=== PATIENT | male | born 1965 | race Caucasian/White ===

== ENCOUNTER 2017-05-21 23:31 | Inpatient (IN) | payer OTHER ==
[2017-05-21] MEDS ORDERED: Magnesium 2 GM/NS 0.9% 50 ML 2 GM in Premix Bag 1 BAG IVPB SCH (23:45)
[2017-05-21] MEDS ORDERED: Lorazepam 2 MG/ML VIAL ONE (23:52)
[2017-05-22 00:13] LABS: #Basophils 0.1 thou/uL (0.0-0.2); #Eosinphils 0.9 thou/uL (0.0-0.7); #Lymphocytes 1.4 thou/uL (1.20-3.40); #Monocytes 1.1 thou/uL (0.11-0.59); #Neutrophils 9.6 thou/uL (1.40-6.50); %Basophils 0.6 % (0.0-1.0); %Eosinophils 7.1 % (0.0-10.0); %Lymphocytes 10.5 % (21.0-51.0); %Monocytes 8.7 % (0.0-10.0); Hematocrit 43.5 % (42.0-52.0); Mean Platelet Volume 6.4 fL (7.4-10.4); Red Blood Cell (RBC) Count 4.58 mill/uL (4.70-6.10); White Blood Cell (WBC) Count 13.1 thou/uL (4.8-10.8)
[2017-05-22 00:33] LABS: ALT (SGPT) 13 U/L (8-55); AST (SGOT) 16 U/L (5-34); Alkaline Phosphatase 91 U/L (40-150); Anion Gap 13 mmol/L (10-20); BUN (Urea Nitrogen) 12 mg/dL (8.4-25.7); Bilirubin, Total 0.3 mg/dL (0.2-1.2); Calc. Creatinine Clearance 0 mL/min (70-130); Calcium 11.5 mg/dL (7.8-10.44); Carbon Dioxide 25 mmol/L (22-29); Chloride 101 mmol/L (98-107); Estimated GFR-MDRD Greater than 90; Globulin 3.7 g/dL (2.4-3.5); Protein, Total 7.8 g/dL (6.0-8.3)
[2017-05-22] MEDS ORDERED: Sodium Chloride 0.9% 1,000 ML IV SCH (02:10)
[2017-05-22] MEDS ORDERED: Ondansetron HCl/PF 4 MG/2 ML Vial IVP PRN ×2 (02:10→02:35)
[2017-05-22] MEDS ORDERED: Ondansetron ODT 4 MG TAB SL PRN (02:10)
[2017-05-22 02:25] VITALS: BMI 21.4
[2017-05-22] MEDS ORDERED: Acetaminophen 325 MG TAB PO PRN (02:35)
[2017-05-22] MEDS ORDERED: Ondansetron ODT 4 MG TAB PO PRN (02:35)
[2017-05-22] MEDS ORDERED: Bisacodyl 5 MG TAB PO PRN (02:35)
[2017-05-22] MEDS ORDERED: Albuterol Sulfate 2.5 mg/3 ml Neb NEB PRN (02:35)
[2017-05-22] MEDS ORDERED: Acetaminophen 650 MG Suppository PR PRN (02:35)
[2017-05-22] MEDS ORDERED: Bisacodyl 10 MG SUPP PR PRN (02:35)
[2017-05-22] MEDS ORDERED: Enoxaparin Sodium 40 MG/0.4 ML SYRINGE SC SCH (02:45)
[2017-05-22 05:16] LABS: Anion Gap 12 mmol/L (10-20); BUN (Urea Nitrogen) 11 mg/dL (8.4-25.7); Calc. Creatinine Clearance 93 mL/min (70-130); Calcium 11.5 mg/dL (7.8-10.44); Carbon Dioxide 24 mmol/L (22-29); Chloride 104 mmol/L (98-107); Estimated GFR-MDRD Greater than 90
[2017-05-22 05:23] LABS: Phosphorus 1.7 mg/dL (2.3-4.7)
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
--- NOTE | 2017-05-22 06:47 | RAD ---
AP VIEW OF CHEST: Date: 05/21/17 HISTORY: Shortness of breath. FINDINGS: The lungs are well aerated. No evidence of active intrathoracic disease seen. No evidence of effusio ns, pneumonia, or pneumothorax seen. IMPRESSION: Unremarkable AP view chest. POS: [facility]
--- NOTE | 2017-05-22 06:55 | HP ---
DATE OF ADMISSION: 05/22/2017 ATTENDING: Dr. Roseline Benavides. RESIDENT: Dr. Kal Mckeon. Dr. Kal Mckeon's history and physical have been reviewed and case discussed. Pertinent portions of the history and physical repeated by myself. I agree with the assessment and plan with the [facility] addendum. Mr. Amos is a 52-year-old male with past medical history of COPD, hypertension, and cur rent incarceration, who presents with a several day history of worsening shortness of breath. In e ER, he was diagnosed with COPD exacerbation and started on BiPAP for respiratory distress. He arr ived to the intermediate care unit at approximately 40 minutes ago and since then he has been weaned off of BiPAP and is now resting comfortably. His O2 saturations are now 98% on 2 liters nasal jamaal hilda. He does not appear to be in respiratory distress, but remains mildly tachypneic. We will cont inue steroids, DuoNeb as needed and monitor in the IMCU for some time this morning. If he continues to do well and improved, may consider transferring out of the IMCU later today. We will continue h is home medications with the addition of steroids and Levaquin for COPD exacerbation. Chest x-ray s hows not really concerning for pneumonia at this time. We were awaiting on the official overread fo r that. In addition to that his calcium is 11.5, he has a history of hyperparathyroidism for which he had thyroid surgery and removal, not currently having any symptoms of hypercalcemia. We will giv e him some IV fluids and Lasix to decrease this and work this up.
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
[2017-05-22] MEDS: Bupropion 150 MG XL TAB PO SCH ×2 (08:48→20:20)
[2017-05-22] MEDS: Famotidine 20 MG TAB PO SCH ×2 (08:48→20:20)
[2017-05-22] MEDS: predniSONE 20 MG TAB PO SCH (08:49)
[2017-05-22] MEDS: FLUoxetine HCl 20 MG CAP PO SCH (08:49)
[2017-05-22] MEDS: Diazepam 5 MG TAB PO PRN ×2 (08:53→16:59)
[2017-05-22] MEDS: HYDROcodone/Acetaminophen 10/325 mg Tablet PO PRN ×3 (08:53→22:21)
[2017-05-22 11:01] LABS: #Basophils 0.1 thou/uL (0.0-0.2); #Lymphocytes 1.4 thou/uL (1.20-3.40); #Monocytes 1.1 thou/uL (0.11-0.59); #Neutrophils 9.6 thou/uL (1.40-6.50); %Basophils 0.5 % (0.0-1.0); %Eosinophils 7.3 % (0.0-10.0); %Lymphocytes 10.5 % (21.0-51.0); %Monocytes 8.7 % (0.0-10.0); Hematocrit 44.5 % (42.0-52.0); Mean Platelet Volume 6.9 fL (7.4-10.4); Red Blood Cell (RBC) Count 4.58 mill/uL (4.70-6.10); White Blood Cell (WBC) Count 13.2 thou/uL (4.8-10.8)
[2017-05-22 12:10] LABS: Base Excess -1.3 mEq/L (0 (+/- 2.5)); O2 Content (venous) 17.2 VOL% (12.5-17.5); pH (venous) 7.413 (7.35-7.45)
--- NOTE | 2017-05-22 12:31 | PDOC.EVN ---
Event Note - Event Note Event Note: Attending Note I personally evaluated the patient and discussed the management with Dr. Carlin His Asthma or COPD is significantly better since admission. Off Bipap. PFTs pedning. Hypercalcemia noted. Etiology workup underway.
[2017-05-22 15:48] LABS: Free T3 2.26 pg/mL (1.71-3.71)
[2017-05-22] MEDS ORDERED: Mometasone/Formoterol 120 PUFF INHALER INH SCH (18:30)
[2017-05-22] MEDS: Atenolol 50 MG TAB PO SCH (20:20)
[2017-05-22] MEDS ORDERED: Benzonatate 100 MG CAP PO PRN (21:52)
[2017-05-23] MEDS: Diazepam 5 MG TAB PO PRN ×3 (01:21→20:09)
--- NOTE | 2017-05-23 07:00 | PDOC.FM ---
- Subjective Subjective: Pt is doing well this morning with no complaints. No adverse events overnight. - Objective MAR Reviewed: Yes Vital Signs & Weight: Vital Signs (12 hours) Temp Pulse Resp BP Pulse Ox 05/23/17 06:40 82 20 94 L 05/23/17 04:39 98 F 69 18 159/86 H 95 05/22/17 21:48 71 22 H 92 L 05/22/17 20:20 89 05/22/17 20:00 98 F 89 18 93 L 05/22/17 19:33 98.1 F 89 18 158/83 H 93 L Weight Weight 64.002 kg I&O: 05/21/17 05/22/17 05/23/17 06:59 06:59 06:59 Intake Total 1950 950 Output Total 720 250 Balance 1230 700 Result Diagrams: 05/22/17 04:40 05/23/17 03:57 <Ruba Carlin - Last Filed: 05/23/17 09:01> - Objective Vital Signs & Weight: Vital Signs (12 hours) Temp Pulse Resp BP BP Pulse Ox 05/23/17 14:34 80 20 94 L 05/23/17 10:46 87 20 95 05/23/17 10:11 167/85 H 05/23/17 08:00 97.8 F 87 20 05/23/17 07:58 65 167/85 H 05/23/17 07:50 97.8 F 77 16 155/88 H 97 05/23/17 06:40 82 20 94 L 05/23/17 04:39 98 F 69 18 159/86 H 95 Weight Weight 64.002 kg I&O: 05/22/17 05/23/17 05/24/17 06:59 06:59 06:59 Intake Total 1950 950 480 Output Total 720 250 Balance 1230 700 480 Result Diagrams: 05/22/17 04:40 05/23/17 03:57 <Malvin Zambrano - Last Filed: 05/23/17 15:19> Phys Exam - Physical Examination Constitutional: NAD no thyromegaly; no mass on neck exam. Respiratory: clear to auscultation bilateral Cardiovascular: RRR Gastrointestinal: soft, non-tender Musculoskeletal: no edema <Ruba Carlin - Last Filed: 05/23/17 09:01> Dx/Plan (1) Acute exacerbation of chronic obstructive pulmonary disease (COPD) Code(s): J44.1 - CHRONIC OBSTRUCTIVE PULMONARY DISEASE W (ACUTE) EXACERBATION Status: Acute Plan: Improving. Continue antibiotic, bronchodilator and steroid therapy. (2) Hypercalcemia Code(s): E83.52 - HYPERCALCEMIA Status: Acute Plan: Ca: 12.2 today. Pt is asymptomatic with moderately elevated calcium. will start hydration with IV fluids and encourage po hydration as well. Emergent treatment not warranted at this time. (3) Primary hyperparathyroidism Code(s): E21.0 - PRIMARY HYPERPARATHYROIDISM Status: Chronic Plan: Pt has hypercalcemia and hypophosphatemia. outpatient surgical managment vs. medical surveilance. (4) Hypophosphatemia Code(s): E83.39 - OTHER DISORDERS OF PHOSPHORUS METABOLISM Status: Resolved Plan: Resolved after oral replacement. (5) Subclinical hyperthyroidism Code(s): E05.90 - THYROTOXICOSIS, UNSP WITHOUT THYROTOXIC CRISIS OR STORM Status: Chronic Plan: decreased TSH and normal free T3/T4 Pt is asymptomatic. No treatment needed at this time. (6) Hypertension Code(s): I10 - ESSENTIAL (PRIMARY) HYPERTENSION Status: Chronic Plan: Atenolol restarted. (7) Bipolar disorder Code(s): F31.9 - BIPOLAR DISORDER, UNSPECIFIED Status: Acute Plan: Continue medical management. (8) Acute respiratory failure with hypoxia Code(s): J96.01 - ACUTE RESPIRATORY FAILURE WITH HYPOXIA Status: Resolved Plan: Resolved. - Plan Plan: Likely D/C today. <Ruba Carlin - Last Filed: 05/23/17 09:01> Attending Addendum - Attending Addendum I personally evaluated the patient and discussed the management with Dr. Carlin. I agree with the History, Examination, Assessment and Plan documented above with any addition or exceptions noted below. Stable. Discharge when cleared by Pulmonology. <Malvin Zambrano - Last Filed: 05/23/17 15:19>
[2017-05-23 07:41] LABS: ALT (SGPT) 12 U/L (8-55); AST (SGOT) 15 U/L (5-34); Alkaline Phosphatase 76 U/L (40-150); Anion Gap 12 mmol/L (10-20); BUN (Urea Nitrogen) 16 mg/dL (8.4-25.7); Bilirubin, Total 0.2 mg/dL (0.2-1.2); Calc. Creatinine Clearance 77 mL/min (70-130); Carbon Dioxide 23 mmol/L (22-29); Chloride 103 mmol/L (98-107); Estimated GFR-MDRD 77; Globulin 3.5 g/dL (2.4-3.5); Protein, Total 7.3 g/dL (6.0-8.3)
[2017-05-23 07:47] LABS: Calcium 12.2 mg/dL (7.8-10.44)
[2017-05-23] MEDS: predniSONE 20 MG TAB PO SCH ×3 (07:57→21:34)
[2017-05-23] MEDS: FLUoxetine HCl 20 MG CAP PO SCH (07:57)
[2017-05-23] MEDS: Bupropion 150 MG XL TAB PO SCH ×2 (07:57→21:35)
[2017-05-23] MEDS: Famotidine 20 MG TAB PO SCH ×2 (07:57→21:35)
[2017-05-23] MEDS: Aspirin 81 mg Enteric Coated Tablet PO SCH (07:57)
[2017-05-23] MEDS: HYDROcodone/Acetaminophen 10/325 mg Tablet PO PRN ×3 (07:58→22:57)
[2017-05-23] MEDS: Atenolol 50 MG TAB PO SCH (07:58)
[2017-05-23] MEDS ORDERED: FLU VACC QS2017-18 36 mo. & older 0.5 ML SYRINGE IM ONE (09:00)
[2017-05-23] MEDS: Sodium Chloride 0.9% 1,000 ML IV SCH ×2 (10:10→16:46)
[2017-05-23] MEDS: cloNIDine 0.2 MG TAB PO SCH ×2 (10:11→21:35)
--- NOTE | 2017-05-23 10:42 | PRG ---
DATE OF SERVICE: 05/23/2017 This morning he is still coughing, still wheezing, still short of breath. He said he is denying any tobacco use. PHYSICAL EXAMINATION: VITAL SIGNS: Blood pressure 167/87, pulse 67, temperature is 98. CHEST: Chest reveals diffuse wheezing. CARDIAC: Normal S1, S2. ABDOMEN: Soft, no masses. LABORATORY DATA: White count 13,000, H\T\H 14 and 43, platelet count was normal. Electrolytes are normal. Calcium was 12.2. Etiology unclear. Thyroid function normal. IMPRESSION: 1. Chronic obstructive pulmonary disease. 2. Asthma. 3. Elevated calcium from his previous parathyroid hormone excess. PLAN: Avoid beta blockers, continue steroids. Continue nebulizer treatments. Empiric antibiotics. I will follow.
[2017-05-23] MEDS ORDERED: diphenhydrAMINE 25 MG CAP PO PRN (17:41)
[2017-05-23] MEDS: Mometasone/Formoterol 120 PUFF INHALER INH SCH (18:50)
[2017-05-23] MEDS ORDERED: Montelukast Sodium 10 mg Tablet PO SCH (21:00)
[2017-05-24] MEDS: Sodium Chloride 0.9% 1,000 ML IV SCH ×2 (02:04→09:04)
[2017-05-24] MEDS: Diazepam 5 MG TAB PO PRN (03:54)
[2017-05-24 04:53] LABS: ALT (SGPT) 12 U/L (8-55); AST (SGOT) 11 U/L (5-34); Alkaline Phosphatase 68 U/L (40-150); Anion Gap 9 mmol/L (10-20); BUN (Urea Nitrogen) 20 mg/dL (8.4-25.7); Bilirubin, Total 0.2 mg/dL (0.2-1.2); Calc. Creatinine Clearance 74 mL/min (70-130); Calcium 11.6 mg/dL (7.8-10.44); Carbon Dioxide 27 mmol/L (22-29); Chloride 102 mmol/L (98-107); Estimated GFR-MDRD 74; Globulin 3.2 g/dL (2.4-3.5); Protein, Total 6.7 g/dL (6.0-8.3)
--- NOTE | 2017-05-24 06:40 | PDOC.FM ---
- Subjective Subjective: Patient is doing well this morning with no complaints. No adverse events overnight. - Objective MAR Reviewed: Yes Vital Signs & Weight: Vital Signs (12 hours) Temp Pulse Resp BP BP Pulse Ox 05/24/17 03:38 97.4 F L 66 16 126/75 97 05/23/17 23:33 97.6 F 65 16 135/74 95 05/23/17 21:35 167/85 H 05/23/17 20:00 97.6 F 65 16 98 05/23/17 19:51 97.6 F 69 16 136/73 98 05/23/17 18:51 78 18 93 L Weight Weight 64.002 kg I&O: 05/22/17 05/23/17 05/24/17 06:59 06:59 06:59 Intake Total 0926 373 4439 Output Total 924 621 5913 Balance 0929 405 9284 Result Diagrams: 05/22/17 04:40 05/24/17 03:54 <Ruba Carlin - Last Filed: 05/24/17 10:15> - Objective Vital Signs & Weight: Vital Signs (12 hours) Temp Pulse Resp BP BP Pulse Ox 05/24/17 08:33 133/77 05/24/17 08:00 97.8 F 67 16 05/24/17 07:58 97.8 F 67 16 133/77 97 05/24/17 07:49 95 05/24/17 07:48 67 20 95 05/24/17 07:42 67 20 95 05/24/17 03:38 97.4 F L 66 16 126/75 97 Weight Weight 64.002 kg I&O: 05/23/17 05/24/17 05/25/17 06:59 06:59 06:59 Intake Total 950 6545 Output Total 250 1800 Balance 700 4745 Result Diagrams: 05/22/17 04:40 05/24/17 03:54 <Malvin Zambrano - Last Filed: 05/24/17 13:04> Phys Exam - Physical Examination Constitutional: NAD Respiratory: wheezing present (diffuse) Cardiovascular: RRR Gastrointestinal: soft, non-tender, no distention Musculoskeletal: no edema Neurological: non-focal Psychiatric: normal affect, A&O x 3 <Ruba Carlin - Last Filed: 05/24/17 10:15> Dx/Plan (1) Acute exacerbation of chronic obstructive pulmonary disease (COPD) Code(s): J44.1 - CHRONIC OBSTRUCTIVE PULMONARY DISEASE W (ACUTE) EXACERBATION Status: Acute Plan: Improving. Continue antibiotic, bronchodilator and steroid therapy. Likely discharge today with short steroid taper and antibiotics. (2) Hypercalcemia Code(s): E83.52 - HYPERCALCEMIA Status: Acute Plan: Ca: 11.6 today Pt is asymptomatic with mildly elevated calcium. Pt will need further outpatient evaluation/treatment for primary hyperparathyroidism. (3) Primary hyperparathyroidism Code(s): E21.0 - PRIMARY HYPERPARATHYROIDISM Status: Chronic Plan: Pt has hypercalcemia and hypophosphatemia. Asymptomatic. No renal failure, bone pain, nephrolithiasis, abdominal pain, or psychiatric problems. outpatient surgical managment vs. medical surveilance. (4) Hypophosphatemia Code(s): E83.39 - OTHER DISORDERS OF PHOSPHORUS METABOLISM Status: Resolved Plan: secondary to primary hyperparathyroidism. Will recheck this am prior to discharge. (5) Subclinical hyperthyroidism Code(s): E05.90 - THYROTOXICOSIS, UNSP WITHOUT THYROTOXIC CRISIS OR STORM Status: Chronic Plan: decreased TSH and normal free T3/T4 Pt is asymptomatic. No treatment needed at this time. (6) Hypertension Code(s): I10 - ESSENTIAL (PRIMARY) HYPERTENSION Status: Chronic Plan: Stable. Continue home regimen. (7) Bipolar disorder Code(s): F31.9 - BIPOLAR DISORDER, UNSPECIFIED Status: Acute Plan: Continue medical management. (8) Acute respiratory failure with hypoxia Code(s): J96.01 - ACUTE RESPIRATORY FAILURE WITH HYPOXIA Status: Resolved Plan: Resolved. <Ruba Carlin - Last Filed: 05/24/17 10:15> Attending Addendum - Attending Addendum I personally evaluated the patient and discussed the management with Dr. Carlin. I agree with the History, Examination, Assessment and Plan documented above with any addition or exceptions noted below. Mr Amos is stable for discharge. Recommend Endocrinology referral outpatient. <Malvin Zambrano - Last Filed: 05/24/17 13:04>
[2017-05-24] MEDS: Mometasone/Formoterol 120 PUFF INHALER INH SCH (07:42)
[2017-05-24 07:59] VITALS: BP 133/77; TEMP 97.8
[2017-05-24] MEDS: FLUoxetine HCl 20 MG CAP PO SCH (08:31)
[2017-05-24] MEDS: predniSONE 20 MG TAB PO SCH (08:32)
[2017-05-24] MEDS: Aspirin 81 mg Enteric Coated Tablet PO SCH (08:32)
[2017-05-24] MEDS: Famotidine 20 MG TAB PO SCH (08:32)
[2017-05-24] MEDS: cloNIDine 0.2 MG TAB PO SCH (08:33)
[2017-05-24] MEDS: Bupropion 150 MG XL TAB PO SCH (08:33)
--- NOTE | 2017-05-24 09:06 | PRG ---
DATE OF SERVICE: 05/24/2017 The patient is better this morning, less shortness of breath, coughing, wheezing. PHYSICAL EXAMINATION: VITAL SIGNS: Sats 97%, 16, blood pressure 130/73. CHEST: Chest revealed decreased breath sounds. There is no wheezing. CARDIAC: Normal S1, S2. ABDOMEN: Soft, no masses. LABORATORY: Sodium 156, calcium 9.6. IMPRESSION: 1. Elevated calcium secondary to PTH. 2. Hypertension, improved. 3. Asthma. 4. Bronchitis. 5. Chronic obstructive pulmonary disease, improved. PLAN: Avoid beta blockers, continue present blood pressure medication. Follow with primary care ph ysician. Taper steroids over the course of 10 days. Continue Dulera, neb treatments, supportive care.
--- NOTE | 2017-05-24 14:14 | DIS-2 ---
DATE OF ADMISSION: 05/22/2017 DATE OF DISCHARGE: 05/24/2017 ADMITTING ATTENDING: Dr. Roseline Benavides DISCHARGE ATTENDING: Malvin Zambrano M.D. CONSULTS: Eduardo Bright M.D. PROCEDURES: None. PRIMARY DIAGNOSES: 1. Acute hypoxic respiratory failure, resolved. 2. Acute chronic obstructive pulmonary disease exacerbation. 3. Mild to moderate hypercalcemia. 4. Hypophosphatemia. SECONDARY DIAGNOSES: 1. Primary hyperparathyroidism. 2. Hypertension. 3. Bipolar disorder. 4. Subclinical hyperthyroidism. DISCHARGE MEDICATIONS: 1. Levofloxacin 750 mg p.o. daily, dispense 4 tablets. 2. Prednisone 60 mg p.o. daily, dispense 4 tablets. 3. Symbicort 160/4.5 mg 1 puff inhalation b.i.d. 4. Wellbutrin-XL 150 mg p.o. b.i.d. 5. Verapamil 240 mg p.o. b.i.d. 6. Fluoxetine 60 mg p.o. daily. 7. Valium 5 mg p.o. q.8h. p.r.n. 8. [place] 10/325 one tab p.o. q.6 hours. DISCONTINUED MEDICATIONS: Atenolol 50 mg p.o. b.i.d. HISTORY OF PRESENT ILLNESS AND HOSPITAL COURSE: The patient is a 52-year-old male who pre sented with a chief complaint of dyspnea that has been ongoing for 1 week and acutely worsened over the day prior to admission. The patient has a questionable past history of obstructive lung disease , either related to chronic obstructive pulmonary disease versus asthma. He presented to the emerge ncy department and was hypoxic and required BiPAP. The patient was quickly transitioned off of BiPA P for several hours after admission to the IM. He was then transferred to the floor for further c are and treatment for moderate COPD exacerbation was initiated including antibiotics, steroids and b ronchodilator treatment and the patient's symptoms resolved and he was stable prior to discharge. Regarding his history of hypercalcemia, the patient's initial calcium on admission was 11.5. The ruslan law did have a past history of parathyroid adenoma removal about 9 years ago and concern was raise d for possible recurrence or parathyroid hyperplasia. Parathyroid level was obtained and was elevat ed which points to a diagnosis of primary hyperparathyroidism. The patient remained asymptomatic in that he did not have any renal failure or nephrolithiasis, abdominal pain, acute psychosis, etc., r elated to his hypercalcemia and for that reason emergent treatment was not deemed necessary. His ca lcium did rise to a level of 12.2 in the moderate range and since the patient was deemed asymptomati c no emergent treatment was deemed necessary. Maintenance fluids were started. The patient will ne ed further outpatient evaluation, possibly including imaging and eventually surgery versus medical s urveillance based on patient preferences. Regarding the patient's hypophosphatemia, phosphorus on admission was 1.7 and responded to oral repl acement. This was also related to the patient's hyperparathyroidism. Regarding the patient's chronic medical problems, all home medications were restarted. Of note, the patient states that for the several weeks prior to admission his Symbicort had not been refilled at the halfway and this was the likely impetus for his exacerbations. It will be most important for pily abdul to be able to have access to all of his medications in order to prevent future exacerbations. DISPOSITION: Stable. DISCHARGE INSTRUCTIONS: 1. Location: [facility]. 2. Diet: Regular. 3. Activity: Ad jerzy. 4. Followup: The patient may follow up with his primary provider in 3 days.
== END 2017-05-24 11:01 | DRG 190 ==
LOC: ERS 23:31 → EEVIPCON 23:31 → IMCU/EMU 05-22 01:00 → ONC 05-22 12:40
PROVIDERS: ADMIT Family Medicine; ATTEND Family Medicine
PROC: 5A09357 Assistance with Respiratory Ventilation, Less than 24 Consecutive Hours, Continuous Positive Airway Pressure (ICD-10-PCS; principal; 2017-05-21)
DX: J44.1 Chronic obstructive pulmonary disease with (acute) exacerbation (principal); J96.01 Acute respiratory failure with hypoxia; E21.0 Primary hyperparathyroidism; E83.39 Other disorders of phosphorus metabolism; I10 Essential (primary) hypertension; F31.9 Bipolar disorder, unspecified; Z23 Encounter for immunization; Z87.891 Personal history of nicotine dependence; M54.9 Dorsalgia, unspecified; G89.29 Other chronic pain; E05.90 Thyrotoxicosis, unspecified without thyrotoxic crisis or storm
CPT/HCPCS: 36415; 71010; 80048; 80053; 82306; 82570; 82805; 83970; 84100; 84105; 84439; 84443; 84481; 85025; 90471; 90682; 90732; 93005; 94060; 94640; 94660; 94727; 96365; 96375; A4216; G0008; G0009; J2060; J3475; J7506; J7620; Q2036

== ENCOUNTER 2018-01-09 11:38 | Emergency (ER) | payer OTHER ==
[2018-01-09] MEDS ORDERED: Lisinopril 10 MG TAB ONE ×2 (12:03→12:12)
[2018-01-09] MEDS ORDERED: cloNIDine 0.1 MG TAB ONE (12:03)
[2018-01-09] MEDS ORDERED: Atenolol 50 MG TAB PO SCH (12:30)
[2018-01-09 12:39] LABS: #Basophils 0.1 thou/uL (0.0-0.2); #Eosinphils 0.7 thou/uL (0.0-0.7); #Lymphocytes 2.4 thou/uL (1.20-3.40); #Monocytes 0.9 thou/uL (0.11-0.59); #Neutrophils 5.7 thou/uL (1.40-6.50); %Lymphocytes 24.3 % (21.0-51.0); %Monocytes 9.5 % (0.0-10.0); %Neutrophils 58.2 % (42.0-75.0); Hemoglobin 15.4 g/dL (14.0-18.0); Mean Corpuscular HGB CONC 33.2 g/dL (32.0-36.0); Mean Corpuscular Hemoglobin 31.1 pg (27.0-31.0); Mean Corpuscular Volume 93.7 fl (80.0-94.0); Mean Platelet Volume 6.2 fL (7.4-10.4); Platelet Count 352 thou/uL (130-400); RBC Distribution Width 16.1 % (11.5-14.5); Red Blood Cell (RBC) Count 4.94 mill/uL (4.70-6.10); White Blood Cell (WBC) Count 9.9 thou/uL (4.8-10.8)
[2018-01-09 13:03] LABS: Anion Gap 13 mmol/L (10-20); BUN (Urea Nitrogen) 16 mg/dL (8.4-25.7); Calc. Creatinine Clearance 0 mL/min (70-130); Calcium 11.5 mg/dL (7.8-10.44); Carbon Dioxide 24 mmol/L (22-29); Chloride 102 mmol/L (98-107); Estimated GFR-MDRD 71; Glucose 87 mg/dL (70-105); Potassium 4.6 mmol/L (3.5-5.1); Sodium 134 mmol/L (136-145)
--- NOTE | 2018-01-09 13:06 | RAD ---
PORTABLE CHEST: HISTORY: Cough. COMPARISON: 05/21/17 exam. FINDINGS: Heart size and mediastinum are within normal limits. The lungs appear clear of any infiltrative proc ess. No significant bony findings. IMPRESSION: No active intrathoracic disease. POS: [facility]
== END 2018-01-09 14:37 | disposition home or self-care (01) ==
LOC: ERS 11:38
DX: J44.1 Chronic obstructive pulmonary disease with (acute) exacerbation (principal); I16.0 Hypertensive urgency; G89.29 Other chronic pain; F41.9 Anxiety disorder, unspecified; F32.9 Major depressive disorder, single episode, unspecified; Z87.891 Personal history of nicotine dependence; Z79.899 Other long term (current) drug therapy
CPT/HCPCS: 36415; 71045; 80048; 85025; 94640; J7620

== ENCOUNTER 2018-07-16 18:52 | Observation (INO) | payer OTHER ==
[2018-07-16] MEDS ORDERED: Aspirin 325 MG TAB ONE (19:04)
[2018-07-16] MEDS ORDERED: Nitroglycerin 0.4 MG TAB (25 Tab Bottle) ONE (19:04)
[2018-07-16] MEDS ORDERED: Ondansetron PF 4 MG/2 ML Vial ONE ×2 (19:12)
--- NOTE | 2018-07-16 19:22 | RAD ---
PORTABLE CHEST 07/16/18 PROVIDED CLINICAL HISTORY: Shortness of breath and chest pain. FINDINGS: Comparison 01/09/18. The cardiac and mediastinal silhouette are within normal limits for portable technique. No focal cons olidation, pleural fluid or pneumothorax apparent. IMPRESSION: No evidence for an acute cardiopulmonary process. POS: [facility]
[2018-07-16] MEDS ORDERED: Lorazepam 2 MG/ML VIAL ONE (19:23)
[2018-07-16 19:25] LABS: #Basophils 0.1 thou/uL (0.0-0.2); #Eosinphils 0.7 thou/uL (0.0-0.7); #Lymphocytes 1.9 thou/uL (1.20-3.40); #Monocytes 0.7 thou/uL (0.11-0.59); #Neutrophils 3.9 thou/uL (1.40-6.50); %Basophils 1.3 % (0.0-1.0); %Eosinophils 9.4 % (0.0-10.0); %Lymphocytes 26.1 % (21.0-51.0); %Monocytes 9.7 % (0.0-10.0); %Neutrophils 53.5 % (42.0-75.0); Hemoglobin 13.7 g/dL (14.0-18.0); Mean Corpuscular HGB CONC 33.3 g/dL (32.0-36.0); Mean Corpuscular Volume 96.2 fL (78.0-98.0); Mean Platelet Volume 7.3 fL (7.4-10.4); Platelet Count 267 thou/uL (130-400); Red Blood Cell (RBC) Count 4.28 mill/uL (4.70-6.10); White Blood Cell (WBC) Count 7.3 thou/uL (4.8-10.8)
[2018-07-16 19:52] LABS: ALT (SGPT) 17 U/L (8-55); AST (SGOT) 24 U/L (5-34); Albumin 4.1 g/dL (3.5-5.0); Alkaline Phosphatase 77 U/L (40-150); Anion Gap 8 mmol/L (10-20); Bilirubin, Total 0.3 mg/dL (0.2-1.2); Calc. Creatinine Clearance 0 mL/min (70-130); Carbon Dioxide 28 mmol/L (22-29); Chloride 100 mmol/L (98-107); Estimated GFR-MDRD 65; Globulin 3.2 g/dL (2.4-3.5); Glucose 104 mg/dL (70-105); Lipase 34 U/L (8-78); Protein, Total 7.3 g/dL (6.0-8.3); Sodium 132 mmol/L (136-145)
[2018-07-16 19:54] LABS: BUN (Urea Nitrogen) 29 mg/dL (8.4-25.7)
[2018-07-16 19:58] LABS: Calcium 13.4 mg/dL (7.8-10.44)
[2018-07-16 20:20] LABS: Bilirubin Negative (Negative); Blood, Urine Negative (Negative); Clarity CLOUDY (Clear); Glucose, Urine (Dipstick) Negative (Negative); Leukocyte Negative (Negative); Nitrite Negative (Negative); Protein, Urine (Dipstick) Negative (Neg-Trace); Specific Gravity, Urine 1.012 (1.002-1.036); Urobilinogen 0.2 mg/dL (0.2-1.0); pH, Urine 7.5 (5.0-9.0)
[2018-07-16] MEDS ORDERED: hydrALAZINE 20 MG/ML VIAL ONE ×2 (20:22→21:06)
[2018-07-16] MEDS ORDERED: Ketorolac Tromethamine 30 MG/ML VIAL ONE (20:22)
[2018-07-16] MEDS ORDERED: Acetaminophen 325 MG TAB PO PRN (22:47)
[2018-07-16] MEDS ORDERED: hydrALAZINE 20 MG/ML VIAL SLOW IVP PRN (22:52)
[2018-07-16] MEDS ORDERED: PROVENTIL INHALER 6.7 G (200 INHALATIONS) INH PRN (22:53)
[2018-07-16] MEDS ORDERED: Atenolol 25 MG TAB PO SCH (23:00)
[2018-07-16 23:50] LABS: Troponin I 0.026 ng/mL (< 0.028)
[2018-07-17] MEDS: Sodium Chloride 0.9% 1,000 ML IV SCH ×2 (01:33→09:05)
[2018-07-17 02:19] LABS: Troponin I 0.022 ng/mL (< 0.028)
[2018-07-17 03:45] VITALS: BMI 20.8
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
[2018-07-17 06:34] LABS: #Eosinphils 0.8 thou/uL (0.0-0.7); #Lymphocytes 1.2 thou/uL (1.20-3.40); #Monocytes 0.6 thou/uL (0.11-0.59); #Neutrophils 3.1 thou/uL (1.40-6.50); %Basophils 0.7 % (0.0-1.0); %Eosinophils 13.2 % (0.0-10.0); %Lymphocytes 21.4 % (21.0-51.0); %Monocytes 10.5 % (0.0-10.0); %Neutrophils 54.3 % (42.0-75.0); Hemoglobin 13.6 g/dL (14.0-18.0); Mean Corpuscular HGB CONC 32.9 g/dL (32.0-36.0); Mean Corpuscular Hemoglobin 32.2 pg (27.0-31.0); Mean Corpuscular Volume 97.9 fL (78.0-98.0); Mean Platelet Volume 7.3 fL (7.4-10.4); Platelet Count 244 thou/uL (130-400); RBC Distribution Width 13.2 % (11.5-14.5); Red Blood Cell (RBC) Count 4.21 mill/uL (4.70-6.10); White Blood Cell (WBC) Count 5.7 thou/uL (4.8-10.8)
[2018-07-17 06:48] LABS: Anion Gap 9 mmol/L (10-20); BUN (Urea Nitrogen) 22 mg/dL (8.4-25.7); Calc. Creatinine Clearance 66 mL/min (70-130); Carbon Dioxide 23 mmol/L (22-29); Chloride 105 mmol/L (98-107); Estimated GFR-MDRD 67; Glucose 103 mg/dL (70-105); Potassium 4.6 mmol/L (3.5-5.1); Sodium 132 mmol/L (136-145)
[2018-07-17 06:51] LABS: Calcium 12.1 mg/dL (7.8-10.44)
[2018-07-17] MEDS ORDERED: FLUoxetine HCl 20 MG CAP PO SCH (09:00)
[2018-07-17] MEDS: Hydrocortisone 1% Cream 30 GM TUBE TOP SCH ×2 (10:24→20:53)
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
--- NOTE | 2018-07-17 11:37 | PDOC.PN ---
- Subjective Encounter Start Date: 07/17/18 Encounter Start Time: 11:00 Subjective: Patient c/o shortness of breath, chest pain -: Reports "everything hurts" n/v, dysuria - Objective Resuscitation Status - Order Detail: 07/16/18 22:47 Resuscitation Status Routine Resuscitation Status: FULL: Full Resuscitation Discussed with: Patient Vital Signs & Weight: Vital Signs (12 hours) Temp Pulse Resp BP BP Pulse Ox 07/17/18 08:15 97.4 F L 71 18 164/97 H 164/97 H 96 07/17/18 04:00 98.5 F 112 H 20 150/87 H 94 L 07/17/18 03:31 81 18 07/17/18 01:41 98 07/17/18 00:00 112 H 162/79 H Weight Weight 62.142 kg I&O: 07/16/18 07/17/18 07/18/18 06:59 06:59 06:59 Intake Total 1350 Output Total 350 Balance 1000 Result Diagrams: 07/17/18 06:16 07/17/18 06:16 Phys Exam - Physical Examination Constitutional: NAD HEENT: PERRLA, moist MMs Neck: no nodes, no JVD Respiratory: wheezing present scattered wheezes, decreased breath sounds Cardiovascular: RRR, no significant murmur Gastrointestinal: soft, non-tender Musculoskeletal: no edema, pulses present Neurological: non-focal, normal sensation Lymphatic: no nodes Psychiatric: normal affect, A&O x 3 Deviation from normal: multiple bug bite type slaas to torso, extremities Dx/Plan (1) Chest pain Code(s): R07.9 - CHEST PAIN, UNSPECIFIED Status: Acute (2) Acute exacerbation of chronic obstructive pulmonary disease (COPD) Code(s): J44.1 - CHRONIC OBSTRUCTIVE PULMONARY DISEASE W (ACUTE) EXACERBATION Status: Acute (3) Bipolar disorder Code(s): F31.9 - BIPOLAR DISORDER, UNSPECIFIED Status: Acute (4) Hypercalcemia Code(s): E83.52 - HYPERCALCEMIA Status: Acute (5) Hypertension Code(s): I10 - ESSENTIAL (PRIMARY) HYPERTENSION Status: Chronic - Plan Dr. Bright has seen patient, added his inhalers back to his daily regimen -: Will add his home medications, BP has improved somewhat -: Stress tomorrow as patient ate breakfast today -: Will monitor labs/VS * .
[2018-07-17] MEDS ORDERED: Ondansetron PF 4 MG/2 ML Vial IVP PRN (11:41)
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
[2018-07-17] MEDS ORDERED: diphenhydrAMINE 25 MG CAP PO PRN (17:17)
[2018-07-17] MEDS: Diazepam 5 MG TAB PO PRN (17:33)
[2018-07-17 18:02] LABS: Bilirubin Negative (Negative); Blood, Urine Negative (Negative); Clarity CLOUDY (Clear); Glucose, Urine (Dipstick) Negative (Negative); Leukocyte Negative (Negative); Nitrite Negative (Negative); Protein, Urine (Dipstick) Negative (Neg-Trace); Specific Gravity, Urine 1.013 (1.002-1.036); Urobilinogen 0.2 mg/dL (0.2-1.0)
[2018-07-17] MEDS: Mometasone/Formoterol 120 PUFF INHALER INH SCH (18:19)
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
[2018-07-17] MEDS: cloNIDine 0.1 MG TAB PO SCH (20:53)
[2018-07-17] MEDS: Bupropion 150 MG XL TAB PO SCH (20:53)
[2018-07-18 05:48] LABS: #Lymphocytes 1.5 thou/uL (1.20-3.40); #Monocytes 0.5 thou/uL (0.11-0.59); #Neutrophils 2.1 thou/uL (1.40-6.50); %Basophils 0.6 % (0.0-1.0); %Eosinophils 19.9 % (0.0-10.0); %Lymphocytes 28.2 % (21.0-51.0); %Monocytes 10.4 % (0.0-10.0); %Neutrophils 40.8 % (42.0-75.0); Hemoglobin 13.6 g/dL (14.0-18.0); Mean Corpuscular HGB CONC 32.7 g/dL (32.0-36.0); Mean Corpuscular Hemoglobin 32.1 pg (27.0-31.0); Mean Corpuscular Volume 98.3 fL (78.0-98.0); Mean Platelet Volume 7.5 fL (7.4-10.4); Platelet Count 236 thou/uL (130-400); RBC Distribution Width 13.1 % (11.5-14.5); Red Blood Cell (RBC) Count 4.22 mill/uL (4.70-6.10); White Blood Cell (WBC) Count 5.2 thou/uL (4.8-10.8)
[2018-07-18] MEDS: Mometasone/Formoterol 120 PUFF INHALER INH SCH (06:07)
[2018-07-18 06:10] LABS: ALT (SGPT) 12 U/L (8-55); AST (SGOT) 13 U/L (5-34); Albumin 3.3 g/dL (3.5-5.0); Alkaline Phosphatase 59 U/L (40-150); Anion Gap 6 mmol/L (10-20); BUN (Urea Nitrogen) 22 mg/dL (8.4-25.7); Bilirubin, Total 0.3 mg/dL (0.2-1.2); Calc. Creatinine Clearance 72 mL/min (70-130); Calcium 11.9 mg/dL (7.8-10.44); Carbon Dioxide 27 mmol/L (22-29); Cardiac Risk 2.3 (Less than 4.5); Chloride 106 mmol/L (98-107); Cholesterol 151 mg/dl (< 200 Desired); Estimated GFR-MDRD 74; Globulin 2.6 g/dL (2.4-3.5); Glucose 99 mg/dL (70-105); HDL Cholesterol 67 mg/dL (>60 Neg Risk); LDL Cholesterol, Calculated 70 mg/dL; Potassium 4.4 mmol/L (3.5-5.1); Protein, Total 5.9 g/dL (6.0-8.3); Sodium 135 mmol/L (136-145); Triglycerides 69 mg/dL (Less than 150)
[2018-07-18] MEDS: Bupropion 150 MG XL TAB PO SCH (08:26)
[2018-07-18] MEDS: cloNIDine 0.1 MG TAB PO SCH (08:26)
[2018-07-18] MEDS: Diazepam 5 MG TAB PO PRN (08:27)
[2018-07-18] MEDS: Hydrocortisone 1% Cream 30 GM TUBE TOP SCH (08:27)
[2018-07-18] MEDS ORDERED: FLUoxetine HCl 20 MG CAP PO SCH (09:00)
[2018-07-18] MEDS ORDERED: Lisinopril 10 MG TAB PO SCH (09:00)
--- NOTE | 2018-07-18 10:30 | PRG ---
DATE OF SERVICE: 07/18/2018 SUBJECTIVE: This morning, he is better. OBJECTIVE: VITAL SIGNS: His blood pressure 137/95, , temperature 97, and pulse 73. PULMONARY: No shortness of breath, coughing, or wheezing. Chest, clear. CARDIAC: Normal S1 and S2. No gallops. ABDOMEN: No masses. LABORATORY DATA: Unremarkable. IMPRESSION: 1. Chronic obstructive pulmonary disease and tobacco abuse, stable. 2. Hypertension, improved. PLAN: Disposition, home. Pulmonary will follow at a distance. Job ID: [id number]
[2018-07-18 13:18] VITALS: TEMP 97.8
--- NOTE | 2018-07-18 15:52 | DIS ---
DATE OF ADMISSION: 07/16/2018 DATE OF DISCHARGE: 07/18/2018 PRIMARY CARE PHYSICIAN: None, although he states that he is going to establish care with the [facility]. CONSULTANTS: 1. Dr. Bright. 2. Dr. Linares. 3. Dr. Silverman. PROCEDURES: The patient had a chest x-ray which showed no evidence of acute cardiopulmonary process. DISCHARGE DIAGNOSES: 1. Chronic obstructive pulmonary disease and tobacco abuse, which is stable. 2. Hypertension, improved. 3. Hypercalcemia, improved. 4. History of bipolar disorder. HOSPITAL COURSE: Mr. Amos is a 53-year-old male with a history of hypertension and COPD, presented to the emergency department on day of admission with shortness of breath, which he reports had been present for the last several days. Reports that he ran out of his blood pressure medications a couple of months ago and has been not taking those at all. He also ran out of his Prozac 3 weeks ago. He did report that his living situation was fairly deplorable. The living situation he has a series of bedbug infestation along with ticks and fleas, reports that this is probably what exacerbated his COPD. He reports some chest pain with shortness of breath and for that Dr. Linares was consulted. Stress test was ordered, but canceled due to bedbug exposure. Echocardiogram has been ordered. Dr. Bright also saw the patient on day of discharge, and stated that from his standpoint, the patient could go home and follow up with him on an outpatient basis. The patient has remained stable. Blood pressure has improved. Calcium has also improved. He will need to follow up with primary care to continue to trend that. His troponins x3 were undetectable. He has requested refills for all of his medications and we will reorder those for him. He states that he would like to follow up with the Family Practice physicians. REVIEW OF SYSTEMS: The patient reports that shortness of breath has improved. Denies any other complaints. Review of systems was reviewed and are negative unless mentioned in the hospital course. PHYSICAL EXAMINATION: VITAL SIGNS: Temperature 98.9, pulse is 72, respirations are 20, pulse ox is 95% on room air, and blood pressure 137/95. CONSTITUTIONAL: The patient appears nontoxic, is alert, oriented to person, place, and time, in no apparent distress. HEENT: Head is atraumatic and normocephalic. Eyes normal to inspection. Pupils are equally round and reactive to light. Extraocular muscles are intact. ENT; mouth exam is normal. Mucous membranes are moist. NECK: Normal range of motion. Trachea is midline. RESPIRATORY/CHEST: Breath sounds diminished. No rhonchi or wheezing are heard. Chest expansion is equal bilaterally. CARDIOVASCULAR: Regular rate and rhythm. Heart sounds are normal. ABDOMEN: Nontender. Bowel sounds are heard. BACK: Normal inspection, normal range of motion. No tenderness. EXTREMITIES: Upper extremities; inspection normal, range of motion is normal, pulses are equal bilaterally. Lower extremities; inspection is normal, range of motion is normal, pedal pulses are intact bilaterally. SKIN: Normal, dry, and normal in color. Does have appearance of several bug bites on torso and extremities. NEURO: The patient is oriented to person, place, and time. Speech is normal. No focal motor or sensory deficits. PSYCH: The patient is oriented to person, place, and time. Affect is normal. ALLERGIES: THIS PATIENT HAS NO KNOWN DRUG ALLERGIES. MEDICATIONS: The patient will be continued on home medications which include; 1. Albuterol 2 puffs inhaled q.4 hours p.r.n. 2. Wellbutrin 150 mg p.o. b.i.d. 3. Catapres 0.1 mg p.o. b.i.d. 4. Fluoxetine 60 mg p.o. daily. 5. Lisinopril 10 mg p.o. daily. 6. Dulera 2 puffs b.i.d. 7. Prednisone we will give 60 mg p.o. daily x3 days. 8. Verapamil SR 240 mg p.o. daily. 9. We suggested the Benadryl 25 mg p.o. q.6 hours as needed for itching. 10. Hydrocortisone cream 1% topical 2 to 3 times a day as needed for itching. CONDITION: The patient's condition is stable. DISPOSITION: The patient will be discharged home. REFERRALS: 1. The patient to follow up with primary care family practice physicians in the next week. 2. Follow up with Dr. Bright in the next 2 to 3 weeks. 3. Follow up with Dr. Linares in the next 2 to 3 weeks. Job ID: [id number]
[2018-07-18 17:16] VITALS: BP 145/79
== END 2018-07-18 17:35 | disposition home or self-care (01) ==
LOC: ERS 18:52 → INTOOBSV 20:33 → 2NO 20:33
PROVIDERS: ADMIT Internal Medicine; ATTEND Internal Medicine
DX: J44.1 Chronic obstructive pulmonary disease with (acute) exacerbation (principal); I16.0 Hypertensive urgency; I10 Essential (primary) hypertension; F31.9 Bipolar disorder, unspecified; R07.9 Chest pain, unspecified; E89.2 Postprocedural hypoparathyroidism; J96.01 Acute respiratory failure with hypoxia; E21.3 Hyperparathyroidism, unspecified; Z87.891 Personal history of nicotine dependence; Z79.52 Long term (current) use of systemic steroids; Z79.899 Other long term (current) drug therapy; Z91.14 Patient's other noncompliance with medication regimen
CPT/HCPCS: 36415; 71045; 80048; 80053; 80061; 81003; 83690; 83880; 84484; 85025; 90471; 90686; 93005; 93306; 94640; 96361; 96374; 96375; 96376; G0008; G0378; J0360; J1885; J2060; J2405

== ENCOUNTER 2018-12-08 17:46 | Emergency (ER) | payer OTHER ==
[2018-12-08] MEDS ORDERED: cloNIDine 0.1 MG TAB ONE (18:07)
[2018-12-08] MEDS ORDERED: Acetaminophen 500 MG TAB ONE (18:07)
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
== END 2018-12-08 19:06 | disposition home or self-care (01) ==
LOC: ERS 17:46
DX: S01.81XA Laceration without foreign body of other part of head, initial encounter (principal); F41.9 Anxiety disorder, unspecified; F32.9 Major depressive disorder, single episode, unspecified; I10 Essential (primary) hypertension; J44.9 Chronic obstructive pulmonary disease, unspecified; Z87.891 Personal history of nicotine dependence; Z79.899 Other long term (current) drug therapy; Y04.8XXA Assault by other bodily force, initial encounter
CPT/HCPCS: 12001; 70450

== ENCOUNTER 2020-01-02 02:10 | Inpatient (IN) | payer OTHER ==
[2020-01-02 02:43] LABS: #Eosinphils 0.8 thou/uL (0.0-0.7); #Monocytes 0.8 thou/uL (0.11-0.59); %Basophils 0.7 % (0.0-1.0); %Eosinophils 12.4 % (0.0-10.0); %Lymphocytes 30.2 % (21.0-51.0); %Monocytes 11.2 % (0.0-10.0); %Neutrophils 45.4 % (42.0-75.0); Hemoglobin 13.9 g/dL (14.0-18.0); Mean Corpuscular HGB CONC 33.5 g/dL (32.0-36.0); Mean Corpuscular Hemoglobin 32.5 pg (27.0-31.0); Mean Corpuscular Volume 96.9 fL (78.0-98.0); Mean Platelet Volume 6.5 fL (7.4-10.4); Platelet Count 413 thou/uL (130-400); Red Blood Cell (RBC) Count 4.29 mill/uL (4.70-6.10); White Blood Cell (WBC) Count 6.7 thou/uL (4.8-10.8)
[2020-01-02 03:16] LABS: Albumin 3.6 g/dL (3.5-5.0)
[2020-01-02 03:17] LABS: Chloride 103 mmol/L (98-107); Potassium 4.6 mmol/L (3.5-5.1); Sodium 135 mmol/L (136-145)
[2020-01-02 03:18] LABS: Calcium 10.7 mg/dL (7.8-10.44); Glucose 94 mg/dL (70-105)
[2020-01-02] MEDS ORDERED: Morphine 4 MG/ML VIAL ONE (03:19)
[2020-01-02] MEDS ORDERED: Nitroglycerin 2% Ointment 1 INCH/1 GM Packet ONE (03:19)
[2020-01-02 03:20] LABS: Anion Gap 11 mmol/L (10-20); Bilirubin, Total 0.3 mg/dL (0.2-1.2); Carbon Dioxide 26 mmol/L (22-29)
[2020-01-02 03:21] LABS: Alkaline Phosphatase 74 U/L (40-110)
[2020-01-02 03:22] LABS: Calc. Creatinine Clearance 0 mL/min (70-130); Estimated GFR-MDRD 67
[2020-01-02 03:23] LABS: BUN (Urea Nitrogen) 14 mg/dL (8.4-25.7)
[2020-01-02 03:24] LABS: ALT (SGPT) 12 U/L (8-55); AST (SGOT) 16 U/L (5-34)
[2020-01-02 03:25] LABS: Lipase 15 U/L (8-78)
[2020-01-02 03:29] LABS: Globulin 3.3 g/dL (2.4-3.5)
[2020-01-02 04:08] LABS: Protein, Total 6.8 g/dL (6.0-8.3)
[2020-01-02] MEDS ORDERED: Acetaminophen 650 MG Suppository PR PRN (04:41)
[2020-01-02] MEDS ORDERED: Acetaminophen 325 MG TAB PO PRN (04:41)
[2020-01-02] MEDS ORDERED: Nitroglycerin 0.4 MG TAB (25 Tab Bottle) PO PRN (04:47)
[2020-01-02] MEDS ORDERED: guaiFENesin 200 MG TAB PO PRN (04:48)
[2020-01-02] MEDS ORDERED: Albuterol 200 PUFF (6.7GM INHALER) INH PRN (04:49)
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
[2020-01-02 05:47] LABS: Lactic Acid 0.6 mmol/L (0.5-2.2)
[2020-01-02] MEDS ORDERED: Aspirin Chewable 81 MG TAB ONE (05:49)
[2020-01-02 05:54] LABS: Troponin I Less than 0.010 ng/mL (< 0.028)
[2020-01-02] MEDS: Sodium Chloride 0.45% 1,000 ML IV SCH (06:41)
[2020-01-02 07:48] VITALS: BMI 20.5
[2020-01-02] MEDS: Famotidine/PF 20 mg/2ml Vial SLOW IVP SCH ×2 (09:00→20:18)
[2020-01-02] MEDS ORDERED: Non-Formulary Item 1 EACH (Budesonide-Formoterol [Symbicort 160-4.5] 1 PUFF) INH SCH (09:00)
[2020-01-02] MEDS ORDERED: Aspirin 325 mg Enteric Coated Tablet PO SCH (09:00)
[2020-01-02] MEDS: Aspirin 81 mg Enteric Coated Tablet PO SCH (09:00)
[2020-01-02] MEDS ORDERED: hydrALAZINE 20 MG/ML VIAL SLOW IVP PRN (09:20)
[2020-01-02 09:41] LABS: Troponin I Less than 0.010 ng/mL (< 0.028)
--- NOTE | 2020-01-02 09:47 | RAD ---
PORTABLE CHEST: HISTORY: Chest pain. FINDINGS: Lung rivero are clear. Heart and mediastinum appear normal. IMPRESSION: No acute finding. POS: AGW
[2020-01-02] MEDS ORDERED: Regadenoson 0.4 MG/5 ML SYRINGE ONE (09:53)
[2020-01-02] MEDS ORDERED: FLUoxetine HCl 20 MG CAP PO SCH (10:00)
[2020-01-02] MEDS ORDERED: Lisinopril 10 MG TAB PO SCH (10:00)
[2020-01-02] MEDS ORDERED: cloNIDine 0.3 MG TAB PO SCH (10:00)
[2020-01-02] MEDS: HYDROcodone/Acetaminophen 10/325 mg Tablet PO PRN ×2 (10:40→23:01)
[2020-01-02] MEDS ORDERED: Diazepam 5 MG TAB PO SCH (11:00)
[2020-01-02] MEDS ORDERED: buPROPion 75 MG TAB PO SCH (11:00)
[2020-01-02] MEDS: Mometasone 200 MCG/Formoterol 5 MCG 120 PUFF INHALER INH SCH ×2 (11:35→19:05)
[2020-01-02] MEDS ORDERED: Bisacodyl 10 MG SUPP PR PRN (13:19)
--- NOTE | 2020-01-02 13:19 | PDOC.HOSPP ---
- Subjective Encounter Date: 01/02/20 Encounter Time: 12:05 Subjective: pt had high BP this am, requiring nitro paste. finished his part of the stress test. He was not taking his meds last 5 days, since he went to the [facility]. it appears either he didnot tell them etc.. hence BP up. - Objective Vital Signs & Weight: Vital Signs (12 hours) Temp Pulse Resp BP BP Pulse Ox 01/02/20 11:35 89 16 01/02/20 10:13 209/112 H 01/02/20 10:11 209/112 H 01/02/20 08:00 97 01/02/20 07:28 96.5 F L 59 L 16 191/113 H 96 01/02/20 06:15 209/114 H 01/02/20 05:58 99.6 F 55 L 16 214/112 H 97 Weight Weight 135 lb 6.4 oz Result Diagrams: 01/02/20 02:35 01/02/20 02:35 Hospitalist ROS - Medication Medications: Active Medications Generic Name Dose Route Start Last Admin Trade Name Freq PRN Reason Stop Dose Admin Hydrocodone Bitart/Acetaminophen 1 tab 01/02/20 09:18 01/02/20 10:40 [place] 10/325 PO 1 tab Q6H PRN Administration Pain Albuterol Sulfate 2 puff 01/02/20 04:49 01/02/20 11:35 Proventil Hfa INH 2 puff Q4H PRN Administration SOB &/or Wheezing Aspirin 81 mg 01/02/20 09:00 01/02/20 09:00 Ecotrin PO 81 mg DAILY ERNIE Administration Famotidine 20 mg 01/02/20 09:00 01/02/20 09:00 Pepcid SLOW IVP 20 mg Q12HR ERNIE Administration Sodium Chloride 1,000 mls @ 75 mls/hr 01/02/20 05:15 01/02/20 06:41 1/2 Normal Saline IV 1,000 mls .[id number] ERNIE Administration Mometasone Furoate/Formoterol Fumar 2 puff 01/02/20 06:30 01/02/20 11:35 Dulera 200 Mcg/5 Mcg Inhaler INH 2 puff BID-RT ERNIE Administration - Exam General Appearance: NAD, awake alert General - other findings: guard in the room Eye: PERRL ENT: normocephalic atraumatic Neck: supple Heart: RRR Respiratory: CTAB, normal chest expansion Gastrointestinal: soft, normal bowel sounds Neurological: no focal deficits Psychiatric: A&O x 3 Hosp A/P - Plan (1) Shortness of breath (2) Productive cough (3) Chest pain (5) Anxiety (6) CAD (coronary artery disease) Patient with chest pain that started after episode of sob. Has had productive cough for 3 weeks. Afebrile with known history of COPD and slight wheezing on exam. Possible COPD exacerbation, admitted for ACS rule out per ED. D-dimer ordered by ED, result pending. CTA if elevated. Monitor BP. Reconcile home meds once verified. Monitor O2 sats. Guaifenesin for cough. Continue inhalers which he normally takes for COPD. . GI prophylaxis with famotidine. Uncont'd Htn htn URGENCY W. Sbp>200 He was not taking his meds last 5 days, since he [facility]. it appears either he didnot tell them etc.. hence BP up. -RESTARTED HIS HOME MEDS, prn HYDRALAZINE - FW ON the stress test result and lipid panel. -not on statin as home regimen, may have to start lipitor after review of LDL and stress result.
--- NOTE | 2020-01-02 15:59 | NM ---
Radionucleotide stress and rest myocardial perfusion scan with CT attenuation correction and SPECT im aging Left ventricular wall motion evaluation and ejection fraction HISTORY: Chest pain. FINDINGS: Lexiscan protocol. No focal perfusion defect or reversibility evident. QGS analysis of gated SPECT images shows no focal wall motion abnormalities. Ejection fraction calcul ated at 54%. IMPRESSION : No evidence of ischemia. Normal LVEF.
[2020-01-02 17:16] LABS: Cardiac Risk 2.7 (Less than 4.5)
[2020-01-02] MEDS: Diazepam 5 MG TAB PO SCH (20:17)
[2020-01-02] MEDS: buPROPion 75 MG TAB PO SCH (20:17)
[2020-01-02] MEDS: Atenolol 50 MG TAB PO SCH (20:18)
[2020-01-02] MEDS ORDERED: Atenolol 50 MG TAB PO SCH (21:00)
[2020-01-03] MEDS: Sodium Chloride 0.45% 1,000 ML IV SCH ×2 (03:21→08:54)
[2020-01-03 04:24] LABS: #Basophils 0.1 thou/uL (0.0-0.2); #Eosinphils 0.9 thou/uL (0.0-0.7); #Lymphocytes 1.7 thou/uL (1.20-3.40); #Monocytes 0.6 thou/uL (0.11-0.59); #Neutrophils 2.4 thou/uL (1.40-6.50); %Basophils 1.2 % (0.0-1.0); %Eosinophils 14.9 % (0.0-10.0); %Lymphocytes 30.5 % (21.0-51.0); %Monocytes 10.5 % (0.0-10.0); %Neutrophils 42.8 % (42.0-75.0); Mean Corpuscular HGB CONC 32.4 g/dL (32.0-36.0); Mean Corpuscular Hemoglobin 32.3 pg (27.0-31.0); Mean Corpuscular Volume 99.6 fL (78.0-98.0); Mean Platelet Volume 6.7 fL (7.4-10.4); Platelet Count 367 thou/uL (130-400); RBC Distribution Width 14.2 % (11.5-14.5); Red Blood Cell (RBC) Count 4.02 mill/uL (4.70-6.10); White Blood Cell (WBC) Count 5.7 thou/uL (4.8-10.8)
[2020-01-03 04:50] LABS: Anion Gap 7 mmol/L (10-20); BUN (Urea Nitrogen) 14 mg/dL (8.4-25.7); Calc. Creatinine Clearance 61 mL/min (70-130); Calcium 10.1 mg/dL (7.8-10.44); Carbon Dioxide 30 mmol/L (22-29); Chloride 102 mmol/L (98-107); Estimated GFR-MDRD 63; Glucose 90 mg/dL (70-105); Potassium 4.5 mmol/L (3.5-5.1); Sodium 134 mmol/L (136-145)
[2020-01-03] MEDS: Mometasone 200 MCG/Formoterol 5 MCG 120 PUFF INHALER INH SCH (07:36)
[2020-01-03] MEDS: Atenolol 50 MG TAB PO SCH (08:49)
[2020-01-03] MEDS: Famotidine/PF 20 mg/2ml Vial SLOW IVP SCH ×2 (08:49→20:34)
[2020-01-03] MEDS: Diazepam 5 MG TAB PO SCH ×2 (08:49→20:34)
[2020-01-03] MEDS: buPROPion 75 MG TAB PO SCH ×2 (08:49→20:34)
[2020-01-03] MEDS: Aspirin 81 mg Enteric Coated Tablet PO SCH (08:49)
[2020-01-03] MEDS: HYDROcodone/Acetaminophen 10/325 mg Tablet PO PRN (08:50)
[2020-01-03] MEDS: FLUoxetine HCl 20 MG CAP PO SCH (08:50)
[2020-01-03] MEDS ORDERED: cloNIDine 0.3 MG TAB PO SCH (09:00)
[2020-01-03] MEDS ORDERED: Lisinopril 10 MG TAB PO SCH (09:00)
[2020-01-03] MEDS ORDERED: cloNIDine 0.1 MG TAB PO SCH (09:00)
[2020-01-03] MEDS ORDERED: FLUOXETINE HCL 60 MG PO SCH (09:00)
[2020-01-03] MEDS ORDERED: Sodium Chloride 0.9% 500 ML IVPB SCH ×2 (14:00→15:00)
--- NOTE | 2020-01-03 14:56 | PDOC.HOSPP ---
- Subjective Encounter Date: 01/03/20 Encounter Time: 09:00 Subjective: no overnight events. This morning, feeling better and complains of chronic low back pain. Was about to be discharge but then SBP 75 and mild drowsiness after antihypertensives administered. - Objective Vital Signs & Weight: Vital Signs (12 hours) Temp Pulse Resp BP Pulse Ox 01/03/20 11:48 98.4 F 60 18 96/55 L 94 L 01/03/20 08:10 98 F 72 18 160/66 H 94 L 01/03/20 07:38 98 01/03/20 07:36 65 16 01/03/20 04:00 97.7 F 56 L 20 111/60 97 Weight Admit Weight 135 lb Weight 135 lb 6.4 oz I&O: 01/02/20 01/03/20 01/04/20 06:59 06:59 06:59 Intake Total 1200 Output Total 650 Balance 550 Result Diagrams: 01/03/20 03:23 01/03/20 03:23 Hospitalist ROS - Review of Systems Constitutional: denies: fever, chills, sweats, weakness, malaise, other Respiratory: reports: cough. denies: shortness of breath, hemoptysis, SOB with excertion Cardiovascular: denies: chest pain, palpitations, orthopnea, paroxysmal noc. dyspnea, edema, light headedness, other Gastrointestinal: denies: nausea, vomiting, abdominal pain, diarrhea, constipation, melena, hematochezia, other - Medication Medications: Active Medications Generic Name Dose Route Start Last Admin Trade Name Freq PRN Reason Stop Dose Admin Hydrocodone Bitart/Acetaminophen 1 tab 01/02/20 09:18 01/03/20 08:50 [place] 10/325 PO 1 tab Q6H PRN Administration Pain Albuterol Sulfate 2 puff 01/02/20 04:49 01/02/20 11:35 Proventil Hfa INH 2 puff Q4H PRN Administration SOB &/or Wheezing Aspirin 81 mg 01/02/20 09:00 01/03/20 08:49 Ecotrin PO 81 mg DAILY ERNIE Administration Bupropion HCl 75 mg 01/02/20 21:00 01/03/20 08:49 Wellbutrin PO 75 mg BID ERNIE Administration Diazepam 5 mg 01/02/20 21:00 01/03/20 08:49 Valium PO 5 mg BID ERNIE Administration Famotidine 20 mg 01/02/20 09:00 01/03/20 08:49 Pepcid SLOW IVP 20 mg Q12HR ERNIE Administration Fluoxetine HCl 60 mg 01/03/20 09:00 01/03/20 08:50 Prozac PO 60 mg DAILY ERNIE Administration Sodium Chloride 500 mls @ 999 mls/hr 01/03/20 14:00 01/03/20 13:54 Normal Saline 0.9% IVPB 01/03/20 15:00 500 mls NOW ERNIE Administration Lisinopril 10 mg 01/03/20 09:00 01/03/20 08:50 Zestril PO 10 mg DAILY ERNIE Administration Mometasone Furoate/Formoterol Fumar 2 puff 01/02/20 06:30 01/03/20 07:36 Dulera 200 Mcg/5 Mcg Inhaler INH 2 puff BID-RT ERNIE Administration Verapamil HCl 240 mg 01/03/20 09:00 01/03/20 08:50 Calan Sr PO 240 mg DAILY ERNIE Administration - Exam General Appearance: NAD, awake alert Heart: no murmur, no gallops, no rubs Heart - other findings: sinus ayden on tele Respiratory: CTAB, no wheezes, no rales, no ronchi Gastrointestinal: soft, non-tender, non-distended, normal bowel sounds Extremities: no edema Hosp A/P - Plan #CAP #COPD -improving clinically; continue ABx to complete 5 days #hypotension -1L NS bolus -after receiving antihypertensive, SBP 75 -try to wean off clonidine, changed to 0.2mg daily; stopped atenolol #musculoskeletal chest pain -resolved -Stress test -ve, trop -ve ELOS 1 night
[2020-01-03] MEDS ORDERED: predniSONE 20 MG TAB PO SCH (15:00)
--- NOTE | 2020-01-03 15:05 | EKG ---
Test Reason : Blood Pressure : / mmHG Vent. Rate : 065 BPM Atrial Rate : 065 BPM P-R Int : 128 ms QRS Dur : 078 ms QT Int : 396 ms P-R-T Axes : 053 067 076 degrees QTc Int : 411 ms Normal sinus rhythm Normal ECG Confirmed by KIKE ARRIETA, CODY ([id number]), editorial assistant VERONICA CALDERÓN ([id number]) on 01/03/2020 3:05:34 PM Referred By: Confirmed By:CODY STOKES MD
[2020-01-03] MEDS ORDERED: Sodium Chloride 0.9% 1,000 ML IV SCH ×2 (17:45→18:00)
[2020-01-03] MEDS: Doxycycline 100 MG CAP PO SCH (20:34)
[2020-01-04] MEDS: HYDROcodone/Acetaminophen 10/325 mg Tablet PO PRN ×2 (00:21→08:35)
[2020-01-04 04:10] LABS: #Lymphocytes 0.8 thou/uL (1.20-3.40); #Monocytes 0.1 thou/uL (0.11-0.59); #Neutrophils 3.2 thou/uL (1.40-6.50); %Basophils 0.7 % (0.0-1.0); %Eosinophils 0.3 % (0.0-10.0); %Lymphocytes 18.8 % (21.0-51.0); %Monocytes 2.6 % (0.0-10.0); %Neutrophils 77.7 % (42.0-75.0); Hemoglobin 12.8 g/dL (14.0-18.0); Mean Corpuscular HGB CONC 32.8 g/dL (32.0-36.0); Mean Corpuscular Hemoglobin 32.5 pg (27.0-31.0); Platelet Count 372 thou/uL (130-400); Red Blood Cell (RBC) Count 3.94 mill/uL (4.70-6.10); White Blood Cell (WBC) Count 4.1 thou/uL (4.8-10.8)
[2020-01-04 04:34] LABS: Anion Gap 10 mmol/L (10-20); BUN (Urea Nitrogen) 16 mg/dL (8.4-25.7); Calc. Creatinine Clearance 61 mL/min (70-130); Calcium 9.6 mg/dL (7.8-10.44); Carbon Dioxide 23 mmol/L (22-29); Chloride 105 mmol/L (98-107); Estimated GFR-MDRD 63; Glucose 121 mg/dL (70-105); Potassium 4.9 mmol/L (3.5-5.1); Sodium 133 mmol/L (136-145)
[2020-01-04] MEDS: buPROPion 75 MG TAB PO SCH (07:56)
[2020-01-04] MEDS: Aspirin 81 mg Enteric Coated Tablet PO SCH (07:56)
[2020-01-04] MEDS: Doxycycline 100 MG CAP PO SCH (07:57)
[2020-01-04] MEDS: FLUoxetine HCl 20 MG CAP PO SCH (07:57)
[2020-01-04] MEDS: Diazepam 5 MG TAB PO SCH (07:58)
[2020-01-04] MEDS ORDERED: predniSONE 20 MG TAB PO SCH (08:00)
[2020-01-04] MEDS: Famotidine/PF 20 mg/2ml Vial SLOW IVP SCH (08:30)
[2020-01-04] MEDS ORDERED: Lisinopril 10 MG TAB PO SCH (09:00)
[2020-01-04] MEDS ORDERED: cloNIDine 0.2 MG TAB PO SCH (09:00)
[2020-01-04] MEDS ORDERED: Atenolol 50 MG TAB PO SCH (09:00)
[2020-01-04 12:26] VITALS: BP 120/69; TEMP 98.3
--- NOTE | 2020-01-05 02:41 | DIS ---
DATE OF ADMISSION: 01/02/2020 DATE OF DISCHARGE: 01/04/2020 HOSPITAL COURSE: Mr. Amos is a 54-year-old male with a medical history of hypertension, COPD, and chronic low back pain, who presented with shortness of breath and increased cough mostly for the past week. He was diagnosed with COPD exacerbation and was treated with antibiotics and steroids. He improved promptly, and after cardiac workup that was negative including a stress test, he was discharged on continued antibiotics and steroids to complete treatment for 5 days. He was discharged hemodynamically stable, breathing and saturating well on room air. PHYSICAL EXAMINATION: VITAL SIGNS: Blood pressure 120/69, temperature 98.3, pulse 60, respiratory rate 17, oxygen saturation 95% on room air. Of note, the patient was hypotensive and bradycardic during his stay, so his antihypertensive medication was modified. GENERAL: Lying comfortably in bed, in no apparent distress. HEENT: Normocephalic, atraumatic. CARDIAC: Regular rate and rhythm. No murmurs, gallops, or rubs. LUNGS: Clear to auscultation bilaterally. No wheezing, rales, or rhonchi. ABDOMEN: Nontender, nondistended. Normal bowel sounds. EXTREMITIES: Strength 5/5 throughout upper and lower extremities. PSYCHIATRIC: Proper mood and affect. Alert and oriented x3. MEDICATION LIST: New medications: Prednisone and doxycycline for 3 more days. Modified medications: 1. Clonidine was reduced from 0.3 to 0.2 daily. 2. Verapamil was reduced from 240 to 120 daily. 3. Atenolol was discontinued. Continued medications: 1. [place]. 2. Symbicort. 3. Fluoxetine. 4. Diazepam. 5. Bupropion. 6. Prilosec. 7. DuoNeb. 8. Lisinopril. Job ID: [id number]
--- NOTE | 2020-01-05 13:55 | PQF ---
CLINICAL DOCUMENTATION IMPROVEMENT CLARIFICATION FORM: ICD-10 Updated PLEASE DO AN ADDENDUM TO THE PROGRESS NOTE WITH ANY DOCUMENTATION UPDATES OR ADDITIONS AND CARRY THROUGH TO DC SUMMARY. THANK YOU. DATE: 01/04 ATTN: DR. CECILIO ENCISO Please exercise your independent, professional judgment in responding to the clarification form. Clinical indicators are provided on the bottom of this form for your review Please check appropriate box(s): [ ] Hyponatremia, please specify etiology if known [ ] Hyponatremia d/t SIADH [ ] Insignificant lab values [ ] Other diagnosis [ x ] Unable to determine In addition, please specify: Present on Admission (POA): [ x ] Yes [ ] No [ ] Unable to determine For continuity of documentation, please document condition throughout progress notes and discharge summary. Thank You. SODIUM: 135, 134, 133 (Lab values 01/01 - 01/03) RISKS: RECENT N/V FOR 3 WEEKS W/POOR FOOD TOLERANCE (H&P, 01/01) TREATMENT: IVF (NS 01/01 - 01/02, ELECTRONIC MAR) SERIAL LAB MONITORING (01/01-01/03) THANK YOU! Lizette (This form is maintained as a part of the permanent medical record) 2014 [employer]. All Rights Reserved Lizette Gordon RN, BSN [email or web address] [email or web address]
--- NOTE | 2020-01-07 07:06 | PQF ---
GONZALO FLEMING, CECILIO [id number] [id number] CLINICAL DOCUMENTATION CLARIFICATION FORM: POST DISCHARGE Addendum to original discharge summary date: ____ Late entry note date: __ DATE:01/07/2020 ATTN: Cecilio Carroll Please exercise your independent, professional judgment in responding to the clarification form. Clinical indicators are provided on the bottom of this form for your review Please check appropriate box(s) to clarify if the following diagnosis has been ruled in or ruled out: CAP (Community-acquired Pneumonia) [ x ] Ruled in diagnosis [ x] Continue to treat [ ] Resolved [ ] Ruled out diagnosis [ ] Cannot rule out diagnosis [ ] Other diagnosis [ ] Unable to determine In addition, please specify: Present on Admission (POA): [ x ] Yes [ ] No [ ] Unable to determine For continuity of documentation, please document condition throughout progress notes and discharge summary. Thank You. CLINICAL INDICATORS - SIGNS / SYMPTOMS / LABS Vital signs 01/01 BP 214/112, Pulse 55, Resp 16, O2 sat 97% Chest X-ray 01/01 Impression: Lung rivero are clear H&P p1 01/01 States he suddenly was feeling SOB and then began to experience substernal chest pain H&P p4 01/01 Productive cough Hospitalist PN p5 01/02 Dr Amezcua CAP, COPD Labs WBC: 01/01=6.7 01/02=5.7 01/03=4.1 RISK FACTORS H&P p2 01/01 HTN H&P p2 01/01 Chronic low back pain H&P p5 01/01 COPD exacerbation H&P p5 01/01 CAD ED Notes 01/01 Former Smoker TREATMENTS MAR 01/02 Vibramycin 100mg oral OCT 02 Prednisone 40 mg oral Oct 02 IVF NS 1L Chest X-ray 01/01 (This form is maintained as a part of the permanent medical record) 2014 [employer] All Rights Reserved Sis [email or web address]
== END 2020-01-04 14:37 | DRG 190 ==
LOC: ERS 02:10 → 2NO 04:30
PROVIDERS: ADMIT Internal Medicine; ATTEND Internal Medicine
DX: J44.1 Chronic obstructive pulmonary disease with (acute) exacerbation (principal); J18.9 Pneumonia, unspecified organism; I10 Essential (primary) hypertension; G89.29 Other chronic pain; M54.5 Low back pain; F41.9 Anxiety disorder, unspecified; F32.9 Major depressive disorder, single episode, unspecified; I25.10 Atherosclerotic heart disease of native coronary artery without angina pectoris; I16.0 Hypertensive urgency; R07.89 Other chest pain; I95.9 Hypotension, unspecified; Z79.899 Other long term (current) drug therapy; Z87.891 Personal history of nicotine dependence
CPT/HCPCS: 36415; 71045; 78452; 80048; 80053; 80061; 83605; 83690; 83735; 83880; 84443; 84484; 85025; 85379; 93005; 93017; 94664; 94760; 96374; A9500; J2270; J2785; J7030; J7512; S0028

== ENCOUNTER 2020-05-21 19:45 | Emergency (ER) | payer OTHER ==
[2020-05-21] MEDS ORDERED: methylPREDNISolone Sod Succ/PF 125 MG/2 ML VIAL ONE (20:25)
[2020-05-21] MEDS ORDERED: Enalaprilat Dihydrate 1.25 MG/ML VIAL SLOW IVP SCH (20:30)
[2020-05-21 20:36] LABS: #Basophils 0.1 thou/uL (0.0-0.2); #Eosinphils 0.7 thou/uL (0.0-0.7); #Lymphocytes 2.1 thou/uL (1.20-3.40); #Monocytes 0.8 thou/uL (0.11-0.59); #Neutrophils 4.5 thou/uL (1.40-6.50); %Basophils 0.8 % (0.0-1.0); %Lymphocytes 25.5 % (21.0-51.0); %Monocytes 9.5 % (0.0-10.0); %Neutrophils 55.2 % (42.0-75.0); Hemoglobin 14.2 g/dL (14.0-18.0); Mean Corpuscular HGB CONC 33.5 g/dL (32.0-36.0); Mean Corpuscular Hemoglobin 33.6 pg (27.0-31.0); Mean Platelet Volume 6.2 fL (7.4-10.4); Platelet Count 332 thou/uL (130-400); RBC Distribution Width 13.3 % (11.5-14.5); Red Blood Cell (RBC) Count 4.22 mill/uL (4.70-6.10); White Blood Cell (WBC) Count 8.1 thou/uL (4.8-10.8)
[2020-05-21] MEDS ORDERED: Albuterol Sulfate 2.5 mg/0.5 ml Neb ONE (20:38)
[2020-05-21] MEDS ORDERED: Albuterol Sulfate 2.5 mg/3 ml Neb ONE ×2 (20:38)
[2020-05-21 21:01] LABS: ALT (SGPT) 18 U/L (8-55); AST (SGOT) 22 U/L (5-34); Alkaline Phosphatase 69 U/L (40-110); Anion Gap 12 mmol/L (10-20); BUN (Urea Nitrogen) 14 mg/dL (8.4-25.7); Bilirubin, Total 0.2 mg/dL (0.2-1.2); Calc. Creatinine Clearance 0 mL/min (70-130); Carbon Dioxide 23 mmol/L (22-29); Chloride 106 mmol/L (98-107); Estimated GFR-MDRD 88; Globulin 3.2 g/dL (2.4-3.5); Glucose 88 mg/dL (70-105); Potassium 4.2 mmol/L (3.5-5.1); Protein, Total 7.2 g/dL (6.0-8.3); Sodium 137 mmol/L (136-145)
--- NOTE | 2020-05-21 21:07 | RAD ---
ONE VIEW CHEST: 05/21/20 HISTORY: Dyspnea. History of COPD and hypertension. COMPARISON: 01/02/20. FINDINGS: Cardiac silhouette and pulmonary vasculature are within normal limits. There is a rounded patchy pare nchymal density seen in the region of the lingula adjacent to the left cardiac border which could be related to focal area of pneumonitis. The lungs are otherwise clear. No other interval change. IMPRESSION: Patchy air space opacity in the region of the lingula which may be related to focal area of pneumonit is. Follow-up to resolution is recommended. POS: FILOMENA
[2020-05-21] MEDS ORDERED: cefTRIAXone\\ROCEPHIN 1 GM VIAL ONE (21:39)
[2020-05-21] MEDS ORDERED: Azithromycin 250 MG TAB ONE (21:39)
== END 2020-05-22 00:02 | disposition home or self-care (01) ==
LOC: ERS 19:45
DX: J44.1 Chronic obstructive pulmonary disease with (acute) exacerbation (principal); J44.0 Chronic obstructive pulmonary disease with (acute) lower respiratory infection; J18.9 Pneumonia, unspecified organism; I10 Essential (primary) hypertension; F41.9 Anxiety disorder, unspecified; F32.9 Major depressive disorder, single episode, unspecified; Z79.891 Long term (current) use of opiate analgesic; Z79.899 Other long term (current) drug therapy
CPT/HCPCS: 36415; 71045; 80053; 85025; 94640; 96365; 96375; J0696; J2930; J7611; J7620

== ENCOUNTER 2020-12-14 23:52 | Emergency (ER) | payer OTHER ==
[2020-12-15] MEDS ORDERED: Morphine 4 MG/ML VIAL ONE (00:21)
[2020-12-15 00:23] LABS: #Basophils 0.1 thou/uL (0.0-0.2); #Eosinphils 0.6 thou/uL (0.0-0.7); #Lymphocytes 1.9 thou/uL (1.20-3.40); #Monocytes 0.8 thou/uL (0.11-0.59); #Neutrophils 4.7 thou/uL (1.40-6.50); %Basophils 1.4 % (0.0-1.0); %Eosinophils 7.7 % (0.0-10.0); %Lymphocytes 22.9 % (21.0-51.0); %Monocytes 10.5 % (0.0-10.0); %Neutrophils 57.6 % (42.0-75.0); Hemoglobin 13.6 g/dL (14.0-18.0); Mean Corpuscular HGB CONC 32.5 g/dL (32.0-36.0); Mean Corpuscular Volume 98.5 fL (78.0-98.0); Mean Platelet Volume 6.4 fL (7.4-10.4); Platelet Count 370 thou/uL (130-400); RBC Distribution Width 14.9 % (11.5-14.5); Red Blood Cell (RBC) Count 4.25 mill/uL (4.70-6.10); White Blood Cell (WBC) Count 8.1 thou/uL (4.8-10.8)
[2020-12-15 00:46] LABS: ALT (SGPT) 15 U/L (8-55); AST (SGOT) 18 U/L (5-34); Albumin 3.9 g/dL (3.5-5.0); Alkaline Phosphatase 76 U/L (40-110); Anion Gap 10 mmol/L (10-20); BUN (Urea Nitrogen) 20 mg/dL (8.4-25.7); Bilirubin, Total 0.2 mg/dL (0.2-1.2); Calc. Creatinine Clearance 0 mL/min (70-130); Calcium 11.1 mg/dL (7.8-10.44); Carbon Dioxide 23 mmol/L (22-29); Chloride 104 mmol/L (98-107); Globulin 3.2 g/dL (2.4-3.5); Glucose 89 mg/dL (70-105); Potassium 4.3 mmol/L (3.5-5.1); Protein, Total 7.1 g/dL (6.0-8.3); Sodium 133 mmol/L (136-145)
== END 2020-12-15 01:48 | disposition home or self-care (01) ==
LOC: ERS 23:52
DX: R07.9 Chest pain, unspecified (principal); I50.9 Heart failure, unspecified; I11.0 Hypertensive heart disease with heart failure; J44.9 Chronic obstructive pulmonary disease, unspecified; Z79.899 Other long term (current) drug therapy
CPT/HCPCS: 36415; 36416; 71046; 80053; 84484; 85025; 93005; 96374; J2270

== ENCOUNTER 2020-12-16 18:43 | Emergency (ER) | payer OTHER ==
[2020-12-16] MEDS ORDERED: Aspirin Chewable 81 MG TAB ONE (19:38)
[2020-12-16 19:48] LABS: #Basophils 0.1 thou/uL (0.0-0.2); #Eosinphils 0.3 thou/uL (0.0-0.7); #Lymphocytes 1.2 thou/uL (1.20-3.40); #Monocytes 0.8 thou/uL (0.11-0.59); #Neutrophils 6.4 thou/uL (1.40-6.50); %Basophils 0.8 % (0.0-1.0); %Eosinophils 3.5 % (0.0-10.0); %Lymphocytes 13.9 % (21.0-51.0); %Monocytes 9.3 % (0.0-10.0); %Neutrophils 72.6 % (42.0-75.0); Hemoglobin 13.3 g/dL (14.0-18.0); Mean Corpuscular HGB CONC 33.5 g/dL (32.0-36.0); Mean Corpuscular Hemoglobin 32.7 pg (27.0-31.0); Mean Corpuscular Volume 97.4 fL (78.0-98.0); Mean Platelet Volume 6.6 fL (7.4-10.4); Platelet Count 358 thou/uL (130-400); Red Blood Cell (RBC) Count 4.06 mill/uL (4.70-6.10); White Blood Cell (WBC) Count 8.8 thou/uL (4.8-10.8)
[2020-12-16 20:13] LABS: Acetaminophen Less than 6.0 mcg/mL (10.0-30.0); Alcohol Less than 10 mg/dL (Less than 10); Salicylate Less than 8.0 mg/dL (15.0-30.0)
[2020-12-16 20:15] LABS: ALT (SGPT) 14 U/L (8-55); AST (SGOT) 15 U/L (5-34); Albumin 3.6 g/dL (3.5-5.0); Alkaline Phosphatase 87 U/L (40-110); Anion Gap 13 mmol/L (10-20); BUN (Urea Nitrogen) 19 mg/dL (8.4-25.7); Bilirubin, Total 0.5 mg/dL (0.2-1.2); Calc. Creatinine Clearance 0 mL/min (70-130); Calcium 10.3 mg/dL (7.8-10.44); Carbon Dioxide 21 mmol/L (22-29); Chloride 107 mmol/L (98-107); Glucose 185 mg/dL (70-105); Potassium 4.2 mmol/L (3.5-5.1); Protein, Total 6.6 g/dL (6.0-8.3); Sodium 137 mmol/L (136-145)
[2020-12-16 20:58] LABS: Amphetamine Not Detected (NotDetected); Barbiturates Screen Not Detected (NotDetected); Benzodiazepine Screen Not Detected (NotDetected); Cocaine Metabolite Screen Detected (NotDetected); Medtox Control Line Valid? VALID (VALID); Medtox Reader # READER 1; Methadone Not Detected (NotDetected); Methamphetamine Not Detected (NotDetected); Opiate Screen Not Detected (NotDetected); Oxycodone Screen Not Detected (NotDetected); Phencyclidine (PCP) Not Detected (NotDetected); THC/Cannabinoid Screen Not Detected (NotDetected); Tricyclic Screen Not Detected (NotDetected)
== END 2020-12-16 22:10 | disposition home or self-care (01) ==
LOC: ERS 18:43
DX: F14.10 Cocaine abuse, uncomplicated (principal); E86.0 Dehydration; I10 Essential (primary) hypertension; J44.9 Chronic obstructive pulmonary disease, unspecified; Z79.899 Other long term (current) drug therapy
CPT/HCPCS: 36415; 70450; 71045; 80053; 80306; 80307; 84484; 85025; 93005

== ENCOUNTER 2020-12-18 17:32 | Emergency (ER) | payer OTHER | END 2020-12-18 19:05 | disposition home or self-care (01) | LOC: ERS 17:32 | DX: E16.2 Hypoglycemia, unspecified (principal); I10 Essential (primary) hypertension; J44.9 Chronic obstructive pulmonary disease, unspecified; I25.2 Old myocardial infarction | CPT/HCPCS: 99281 ==

== ENCOUNTER 2021-01-11 11:40 | Inpatient (IN) | payer OTHER ==
[2021-01-11] MEDS ORDERED: methylPREDNISolone Sod Succ/PF 125 MG/2 ML VIAL ONE (11:52)
[2021-01-11 12:03] LABS: Actual Bicarbonate (HCO3v) 24 mEq/L (22-28); Analyzer IN Cardio ER; Base Excess -0.6 mEq/L (-2.0 to +3.0); Calcium, Ionized (venous) 1.27 mmol/L (1.16-1.32); Chloride (VBG) 103 mmol/L (98-106); Hemoglobin (Hb) 15.9 g/dL (13.1-17.2); Potassium (VBG) 4.35 mmol/L (3.70-5.30); Sodium 136.6 mmol/L (133-146); pH (venous) 7.42 (7.32-7.43)
[2021-01-11 12:11] LABS: #Basophils 0.1 thou/uL (0.0-0.2); #Eosinphils 0.9 thou/uL (0.0-0.7); #Lymphocytes 2.1 thou/uL (1.20-3.40); #Neutrophils 4.7 thou/uL (1.40-6.50); %Basophils 0.6 % (0.0-1.0); %Eosinophils 10.5 % (0.0-10.0); %Lymphocytes 23.6 % (21.0-51.0); %Monocytes 11.7 % (0.0-10.0); %Neutrophils 53.6 % (42.0-75.0); Hemoglobin 14.6 g/dL (14.0-18.0); Mean Corpuscular HGB CONC 33.1 g/dL (32.0-36.0); Mean Corpuscular Hemoglobin 32.8 pg (27.0-31.0); Mean Corpuscular Volume 99.1 fL (78.0-98.0); Mean Platelet Volume 6.8 fL (7.4-10.4); Platelet Count 361 thou/uL (130-400); RBC Distribution Width 14.1 % (11.5-14.5); Red Blood Cell (RBC) Count 4.46 mill/uL (4.70-6.10); White Blood Cell (WBC) Count 8.8 thou/uL (4.8-10.8)
[2021-01-11 12:29] LABS: ALT (SGPT) 18 U/L (8-55); AST (SGOT) 19 U/L (5-34); Albumin 4.2 g/dL (3.5-5.0); Alkaline Phosphatase 89 U/L (40-110); Anion Gap 14 mmol/L (10-20); BUN (Urea Nitrogen) 14 mg/dL (8.4-25.7); Bilirubin, Total 0.3 mg/dL (0.2-1.2); Calc. Creatinine Clearance 0 mL/min (70-130); Calcium 11.1 mg/dL (7.8-10.44); Carbon Dioxide 25 mmol/L (22-29); Chloride 103 mmol/L (98-107); Globulin 3.4 g/dL (2.4-3.5); Glucose 133 mg/dL (70-105); Magnesium 1.9 mg/dL (1.6-2.6); Potassium 4.7 mmol/L (3.5-5.1); Protein, Total 7.6 g/dL (6.0-8.3); Sodium 137 mmol/L (136-145)
[2021-01-11] MEDS ORDERED: Iopamidol-370 76% 500 ML 1 ML ONE (13:42)
[2021-01-11 13:43] LABS: SARS-CoV-2 NAA Rapid Test Not Detected (NotDetected)
[2021-01-11] MEDS ORDERED: Azithromycin 500 MG VIAL ONE (15:36)
[2021-01-11] MEDS ORDERED: cefTRIAXone\\ROCEPHIN 1 GM VIAL ONE ×2 (15:36→15:38)
[2021-01-11] MEDS ORDERED: Calcium Carbonate 500 MG ChewTAB PO PRN ×2 (16:11→18:11)
[2021-01-11] MEDS ORDERED: Ondansetron PF 4 MG/2 ML Vial IVP PRN ×2 (16:11→18:11)
[2021-01-11] MEDS ORDERED: Senokot S 8.6-50 MG TAB PO PRN (16:11)
[2021-01-11] MEDS ORDERED: Ondansetron ODT 4 MG TAB PO PRN ×2 (16:11→18:11)
[2021-01-11] MEDS ORDERED: Bisacodyl 10 MG SUPP PR PRN (16:11)
[2021-01-11] MEDS ORDERED: Bisacodyl 5 MG TAB PO PRN ×2 (16:11→18:11)
[2021-01-11] MEDS ORDERED: Acetaminophen 650 MG Suppository PR PRN ×2 (16:11→18:11)
[2021-01-11] MEDS ORDERED: Acetaminophen 325 MG TAB PO PRN (16:11)
[2021-01-11] MEDS ORDERED: Magnesium 2 GM/50 ML BAG (IN WATER) ONE (16:38)
[2021-01-11 18:36] VITALS: BMI 22.1
[2021-01-11] MEDS: Acetaminophen 325 MG TAB PO PRN (19:45)
[2021-01-11] MEDS ORDERED: Lidocaine 5% Patch TD SCH (20:00)
[2021-01-12] MEDS: buPROPion HCl 100 MG TAB PO SCH ×2 (08:35→19:51)
[2021-01-12] MEDS: Enoxaparin Sodium 40 MG/0.4 ML SYRINGE SC SCH (08:35)
[2021-01-12] MEDS: FLUoxetine HCl 20 MG CAP PO SCH (08:36)
[2021-01-12] MEDS: NIFEdipine XL 30 MG TAB PO SCH (08:36)
[2021-01-12] MEDS: Lisinopril 20 MG TAB PO SCH (08:36)
[2021-01-12] MEDS: Azithromycin 250 MG TAB PO SCH (08:37)
[2021-01-12] MEDS: predniSONE 20 MG TAB PO SCH (08:37)
[2021-01-12] MEDS: Lidocaine Patch Removal TOP SCH (08:37)
[2021-01-12] MEDS: Acetaminophen 325 MG TAB PO PRN ×2 (08:40→17:35)
[2021-01-12] MEDS ORDERED: Lidocaine 5% Patch TD SCH ×2 (09:00→20:00)
[2021-01-12] MEDS ORDERED: predniSONE 20 MG TAB PO SCH (09:00)
[2021-01-12] MEDS: Famotidine 20 MG TAB PO PRN (16:39)
[2021-01-12] MEDS: Mometasone 200 MCG/Formoterol 5 MCG 120 PUFF INHALER INH SCH (18:53)
[2021-01-12] MEDS ORDERED: Lidocaine Patch Removal TOP SCH (21:00)
[2021-01-13 06:27] LABS: #Basophils 0.1 thou/uL (0.0-0.2); #Eosinphils 0.1 thou/uL (0.0-0.7); #Lymphocytes 2.1 thou/uL (1.20-3.40); #Monocytes 0.7 thou/uL (0.11-0.59); #Neutrophils 4.4 thou/uL (1.40-6.50); %Basophils 0.8 % (0.0-1.0); %Eosinophils 1.7 % (0.0-10.0); %Lymphocytes 28.5 % (21.0-51.0); %Monocytes 9.6 % (0.0-10.0); %Neutrophils 59.5 % (42.0-75.0); Hemoglobin 12.3 g/dL (14.0-18.0); Mean Corpuscular HGB CONC 33.4 g/dL (32.0-36.0); Mean Corpuscular Hemoglobin 33.3 pg (27.0-31.0); Mean Corpuscular Volume 99.9 fL (78.0-98.0); Mean Platelet Volume 6.6 fL (7.4-10.4); Platelet Count 289 thou/uL (130-400); RBC Distribution Width 14.2 % (11.5-14.5); Red Blood Cell (RBC) Count 3.67 mill/uL (4.70-6.10); White Blood Cell (WBC) Count 7.5 thou/uL (4.8-10.8)
[2021-01-13 06:48] LABS: Anion Gap 10 mmol/L (10-20); BUN (Urea Nitrogen) 16 mg/dL (8.4-25.7); Calc. Creatinine Clearance 68 mL/min (70-130); Carbon Dioxide 26 mmol/L (22-29); Chloride 105 mmol/L (98-107); Glucose 104 mg/dL (70-105); Potassium 4.3 mmol/L (3.5-5.1); Sodium 137 mmol/L (136-145)
[2021-01-13] MEDS: Mometasone 200 MCG/Formoterol 5 MCG 120 PUFF INHALER INH SCH (07:22)
[2021-01-13] MEDS: FLUoxetine HCl 20 MG CAP PO SCH (08:27)
[2021-01-13] MEDS: NIFEdipine XL 30 MG TAB PO SCH (08:27)
[2021-01-13] MEDS: buPROPion HCl 100 MG TAB PO SCH (08:28)
[2021-01-13] MEDS: Azithromycin 250 MG TAB PO SCH (08:28)
[2021-01-13] MEDS: predniSONE 20 MG TAB PO SCH (08:28)
[2021-01-13] MEDS: Lisinopril 20 MG TAB PO SCH (08:28)
[2021-01-13] MEDS: Lidocaine Patch Removal TOP SCH (08:28)
[2021-01-13] MEDS: Enoxaparin Sodium 40 MG/0.4 ML SYRINGE SC SCH (08:29)
[2021-01-13] MEDS: Famotidine 20 MG TAB PO PRN (08:32)
[2021-01-13] MEDS: Acetaminophen 325 MG TAB PO PRN (08:32)
[2021-01-13] MEDS ORDERED: Ibuprofen 600 MG TAB PO PRN (09:56)
[2021-01-13] MEDS ORDERED: guaiFENesin ER 600 MG TAB PO PRN (10:05)
[2021-01-13 18:19] VITALS: BP 141/77; TEMP 97.7
== END 2021-01-13 18:40 | disposition home or self-care (01) | DRG 189 ==
LOC: ERS 11:40 → T4-A 17:17
PROVIDERS: ADMIT Family Medicine; ATTEND Family Medicine
DX: J96.01 Acute respiratory failure with hypoxia (principal); J44.1 Chronic obstructive pulmonary disease with (acute) exacerbation; Z20.822 Contact with and (suspected) exposure to COVID-19; F31.30 Bipolar disorder, current episode depressed, mild or moderate severity, unspecified; G89.29 Other chronic pain; K21.9 Gastro-esophageal reflux disease without esophagitis; E21.3 Hyperparathyroidism, unspecified; J40 Bronchitis, not specified as acute or chronic; F32.9 Major depressive disorder, single episode, unspecified; F17.210 Nicotine dependence, cigarettes, uncomplicated; I10 Essential (primary) hypertension; F41.9 Anxiety disorder, unspecified; E78.5 Hyperlipidemia, unspecified; Z79.51 Long term (current) use of inhaled steroids; Z79.899 Other long term (current) drug therapy
CPT/HCPCS: 36415; 71045; 71275; 80048; 80053; 82805; 83605; 83735; 83880; 84145; 84484; 85025; 87040; 87077; 87149; 87186; 87804; 93005; 94640; 94760; J0456; J0696; J1650; J2930; J3475; J7512; J7620; Q9967; U0002; U0005

== ENCOUNTER 2021-03-15 11:58 | Inpatient (IN) | payer OTHER ==
[2021-03-15] MEDS ORDERED: Magnesium 2 GM/50 ML BAG (IN WATER) ONE (13:32)
[2021-03-15] MEDS ORDERED: predniSONE 20 MG TAB ONE (13:32)
[2021-03-15 13:33] LABS: #Basophils 0.1 thou/uL (0.0-0.2); #Lymphocytes 2.1 thou/uL (1.20-3.40); #Monocytes 0.8 thou/uL (0.11-0.59); #Neutrophils 4.1 thou/uL (1.40-6.50); %Basophils 0.6 % (0.0-1.0); %Eosinophils 12.4 % (0.0-10.0); %Monocytes 9.4 % (0.0-10.0); %Neutrophils 51.4 % (42.0-75.0); Hemoglobin 14.4 g/dL (14.0-18.0); Mean Corpuscular HGB CONC 34.9 g/dL (32.0-36.0); Mean Corpuscular Hemoglobin 33.2 pg (27.0-31.0); Mean Corpuscular Volume 95.1 fL (78.0-98.0); Mean Platelet Volume 6.9 fL (7.4-10.4); Platelet Count 303 thou/uL (130-400); RBC Distribution Width 12.8 % (11.5-14.5); Red Blood Cell (RBC) Count 4.35 mill/uL (4.70-6.10)
[2021-03-15] MEDS ORDERED: Albuterol 200 PUFF (6.7GM INHALER) ONE (14:02)
[2021-03-15 14:18] LABS: SARS-CoV-2 NAA Rapid Test Not Detected (NotDetected)
[2021-03-15 14:31] LABS: ALT (SGPT) 12 U/L (8-55); AST (SGOT) 15 U/L (5-34); Albumin 4.3 g/dL (3.5-5.0); Alkaline Phosphatase 80 U/L (40-110); Anion Gap 7 mmol/L (10-20); BUN (Urea Nitrogen) 18 mg/dL (8.4-25.7); Bilirubin, Total 0.3 mg/dL (0.2-1.2); Calc. Creatinine Clearance 0 mL/min (70-130); Calcium 11.1 mg/dL (7.8-10.44); Carbon Dioxide 27 mmol/L (22-29); Chloride 100 mmol/L (98-107); Globulin 3.4 g/dL (2.4-3.5); Glucose 109 mg/dL (70-105); Potassium 4.2 mmol/L (3.5-5.1); Protein, Total 7.7 g/dL (6.0-8.3); Sodium 130 mmol/L (136-145)
[2021-03-15] MEDS ORDERED: Guaifenesin DM 100-10/5 ML UDCUP PO PRN (15:33)
[2021-03-15] MEDS ORDERED: Ondansetron ODT 4 MG TAB PO PRN (15:33)
[2021-03-15] MEDS ORDERED: Ondansetron PF 4 MG/2 ML Vial IVP PRN (15:33)
[2021-03-15] MEDS ORDERED: Acetaminophen 650 MG Suppository PR PRN (15:33)
[2021-03-15] MEDS ORDERED: Albuterol Sulfate 2.5 mg/3 ml Neb NEB PRN (15:33)
[2021-03-15] MEDS ORDERED: Acetaminophen 325 MG TAB ONE (20:11)
[2021-03-15] MEDS ORDERED: methylPREDNISolone Sod Succ 40 MG VIAL ONE (20:11)
[2021-03-15] MEDS: Acetaminophen 325 MG TAB PO PRN (20:24)
[2021-03-15] MEDS: methylPREDNISolone Sod Succ 40 MG VIAL IVP SCH (20:24)
[2021-03-16] MEDS: methylPREDNISolone Sod Succ 40 MG VIAL IVP SCH ×2 (00:12→05:45)
[2021-03-16] MEDS ORDERED: methylPREDNISolone Sod Succ 40 MG VIAL ONE (00:13)
[2021-03-16 00:51] VITALS: BMI 21.6
[2021-03-16] MEDS: Acetaminophen 325 MG TAB PO PRN ×3 (05:50→17:39)
[2021-03-16 05:57] LABS: #Lymphocytes 0.8 thou/uL (1.20-3.40); #Monocytes 0.1 thou/uL (0.11-0.59); #Neutrophils 5.2 thou/uL (1.40-6.50); %Basophils 0.1 % (0.0-1.0); %Eosinophils 0.1 % (0.0-10.0); %Lymphocytes 13.1 % (21.0-51.0); %Monocytes 1.4 % (0.0-10.0); %Neutrophils 85.3 % (42.0-75.0); Hemoglobin 13.4 g/dL (14.0-18.0); Mean Corpuscular HGB CONC 33.1 g/dL (32.0-36.0); Mean Corpuscular Hemoglobin 31.5 pg (27.0-31.0); Mean Platelet Volume 7.1 fL (7.4-10.4); Platelet Count 299 thou/uL (130-400); RBC Distribution Width 12.9 % (11.5-14.5); Red Blood Cell (RBC) Count 4.27 mill/uL (4.70-6.10); White Blood Cell (WBC) Count 6.1 thou/uL (4.8-10.8)
[2021-03-16 06:10] LABS: Anion Gap 11 mmol/L (10-20); BUN (Urea Nitrogen) 19 mg/dL (8.4-25.7); Calc. Creatinine Clearance 66 mL/min (70-130); Carbon Dioxide 23 mmol/L (22-29); Chloride 99 mmol/L (98-107); Glucose 155 mg/dL (70-105); Potassium 4.1 mmol/L (3.5-5.1); Sodium 129 mmol/L (136-145)
[2021-03-16] MEDS ORDERED: LIDOCAINE TP SCH (09:00)
[2021-03-16] MEDS ORDERED: Benzocaine (Dental) 7 GM TUBE TOP PRN (10:04)
[2021-03-16] MEDS ORDERED: Azithromycin 200 MG/5 ML Oral Suspension PO SCH (10:15)
[2021-03-16] MEDS ORDERED: Azithromycin 250 MG TAB PO SCH (10:30)
[2021-03-16] MEDS: NIFEdipine XL 30 MG TAB PO SCH (10:31)
[2021-03-16] MEDS: Famotidine 20 MG TAB PO PRN (10:32)
[2021-03-16] MEDS: Lisinopril 20 MG TAB PO SCH (10:32)
[2021-03-16] MEDS: Lidocaine 5% Patch TD SCH (10:33)
[2021-03-16] MEDS: FLUoxetine HCl 20 MG CAP PO SCH (10:33)
[2021-03-16] MEDS: guaiFENesin ER 600 MG TAB PO PRN (10:37)
[2021-03-16] MEDS: Mometasone 200 MCG/Formoterol 5 MCG 120 PUFF INHALER INH SCH (19:19)
[2021-03-16] MEDS: Ibuprofen 800 MG TAB PO PRN (19:55)
[2021-03-16] MEDS: Montelukast Sodium 10 mg Tablet PO SCH (19:55)
[2021-03-16] MEDS: buPROPion 75 MG TAB PO SCH (19:55)
[2021-03-16] MEDS: Transdermal Patch Removal TOP SCH (19:57)
[2021-03-17 06:33] LABS: Anion Gap 9 mmol/L (10-20); BUN (Urea Nitrogen) 30 mg/dL (8.4-25.7); Calc. Creatinine Clearance 52 mL/min (70-130); Calcium 11.1 mg/dL (7.8-10.44); Carbon Dioxide 28 mmol/L (22-29); Chloride 103 mmol/L (98-107); Glucose 102 mg/dL (70-105); Potassium 4.7 mmol/L (3.5-5.1); Sodium 135 mmol/L (136-145)
[2021-03-17] MEDS: buPROPion 75 MG TAB PO SCH ×2 (07:50→20:34)
[2021-03-17] MEDS: NIFEdipine XL 30 MG TAB PO SCH (07:50)
[2021-03-17] MEDS: Lisinopril 20 MG TAB PO SCH (07:50)
[2021-03-17] MEDS: predniSONE 20 MG TAB PO SCH (07:51)
[2021-03-17] MEDS: Azithromycin 250 MG TAB PO SCH (07:51)
[2021-03-17] MEDS: Lidocaine 5% Patch TD SCH (07:52)
[2021-03-17] MEDS: FLUoxetine HCl 20 MG CAP PO SCH (07:52)
[2021-03-17] MEDS: Mometasone 200 MCG/Formoterol 5 MCG 120 PUFF INHALER INH SCH ×2 (07:54→19:25)
[2021-03-17] MEDS: Ibuprofen 800 MG TAB PO PRN (07:58)
[2021-03-17] MEDS: guaiFENesin ER 600 MG TAB PO PRN (07:58)
[2021-03-17] MEDS ORDERED: Benzocaine (Dental) 7 GM TUBE TOP PRN (08:49)
[2021-03-17] MEDS: Famotidine 20 MG TAB PO PRN (12:37)
[2021-03-17 14:41] LABS: Anion Gap 11 mmol/L (10-20); BUN (Urea Nitrogen) 26 mg/dL (8.4-25.7); Calc. Creatinine Clearance 49 mL/min (70-130); Calcium 10.8 mg/dL (7.8-10.44); Carbon Dioxide 24 mmol/L (22-29); Chloride 99 mmol/L (98-107); Glucose 156 mg/dL (70-105); Potassium 4.6 mmol/L (3.5-5.1); Sodium 129 mmol/L (136-145)
[2021-03-17] MEDS: Montelukast Sodium 10 mg Tablet PO SCH (20:34)
[2021-03-17] MEDS: Transdermal Patch Removal TOP SCH (20:35)
[2021-03-17] MEDS: Calcium Carbonate 500 MG ChewTAB PO PRN (22:00)
[2021-03-18] MEDS: Calcium Carbonate 500 MG ChewTAB PO PRN (06:16)
[2021-03-18 06:33] LABS: Anion Gap 10 mmol/L (10-20); BUN (Urea Nitrogen) 27 mg/dL (8.4-25.7); Calc. Creatinine Clearance 53 mL/min (70-130); Calcium 11.1 mg/dL (7.8-10.44); Carbon Dioxide 26 mmol/L (22-29); Chloride 103 mmol/L (98-107); Glucose 80 mg/dL (70-105); Potassium 4.7 mmol/L (3.5-5.1); Sodium 134 mmol/L (136-145)
[2021-03-18] MEDS: NIFEdipine XL 30 MG TAB PO SCH (08:26)
[2021-03-18] MEDS: Azithromycin 250 MG TAB PO SCH (08:27)
[2021-03-18] MEDS: predniSONE 20 MG TAB PO SCH (08:27)
[2021-03-18] MEDS: buPROPion 75 MG TAB PO SCH (08:27)
[2021-03-18] MEDS: Lisinopril 20 MG TAB PO SCH (08:28)
[2021-03-18] MEDS: Lidocaine 5% Patch TD SCH (08:28)
[2021-03-18] MEDS: Acetaminophen 325 MG TAB PO PRN (08:35)
[2021-03-18] MEDS: FLUoxetine HCl 20 MG CAP PO SCH (08:35)
[2021-03-18] MEDS: guaiFENesin ER 600 MG TAB PO PRN (08:35)
[2021-03-18] MEDS: Mometasone 200 MCG/Formoterol 5 MCG 120 PUFF INHALER INH SCH (11:34)
[2021-03-18 11:41] VITALS: BP 153/94; TEMP 98.8
== END 2021-03-18 12:35 | DRG 189 ==
LOC: EEVIPCON 11:58 → ERS 11:58 → ERHOLD 15:33 → T4-A 03-16 00:30
PROVIDERS: ADMIT Family Medicine; ATTEND Family Medicine
DX: J96.01 Acute respiratory failure with hypoxia (principal); Z20.822 Contact with and (suspected) exposure to COVID-19; J44.1 Chronic obstructive pulmonary disease with (acute) exacerbation; E87.1 Hypo-osmolality and hyponatremia; N17.9 Acute kidney failure, unspecified; K13.79 Other lesions of oral mucosa; I10 Essential (primary) hypertension; I25.10 Atherosclerotic heart disease of native coronary artery without angina pectoris; E78.5 Hyperlipidemia, unspecified; F41.9 Anxiety disorder, unspecified; F31.9 Bipolar disorder, unspecified; G89.29 Other chronic pain; M54.9 Dorsalgia, unspecified; I25.2 Old myocardial infarction; Z79.899 Other long term (current) drug therapy; Z79.52 Long term (current) use of systemic steroids
CPT/HCPCS: 36415; 71045; 80048; 80053; 83880; 83930; 83935; 84300; 84484; 85025; 93005; 94640; 94664; 96365; J2920; J3475; J7512; J7620; U0002; U0005

== ENCOUNTER 2021-11-05 15:23 | Emergency (ER) | payer OTHER ==
[2021-11-05] MEDS ORDERED: HYDROcodone/Acetaminophen 5/325 mg Tablet ONE (17:28)
== END 2021-11-05 18:27 | disposition home or self-care (01) ==
LOC: ERS 15:23
DX: J39.2 Other diseases of pharynx (principal); I10 Essential (primary) hypertension; J44.9 Chronic obstructive pulmonary disease, unspecified
CPT/HCPCS: 99282

== ENCOUNTER 2021-12-22 19:09 | Inpatient (IN) | payer OTHER ==
[~2021-12-22 19:09] MED LIST: Iopamidol-370 76% 500 ML 1 ML ONE
[2021-12-22] MEDS ORDERED: Ondansetron PF 4 MG/2 ML Vial ONE (19:16)
[2021-12-22] MEDS ORDERED: Morphine 4 MG/ML VIAL ONE ×3 (19:16→21:25)
[2021-12-22] MEDS ORDERED: Boostrix 0.5 ML (Tdap) VIAL ONE (19:24)
[2021-12-22] MEDS ORDERED: CEFAZOLIN 2 GM VIAL ONE (19:24)
[2021-12-22 19:45] LABS: #Eosinphils 0.5 thou/uL (0.0-0.7); #Lymphocytes 1.6 thou/uL (1.20-3.40); #Monocytes 0.8 thou/uL (0.11-0.59); #Neutrophils 4.5 thou/uL (1.40-6.50); %Basophils 0.6 % (0.0-1.0); %Eosinophils 6.1 % (0.0-10.0); %Monocytes 10.3 % (0.0-10.0); %Neutrophils 60.9 % (42.0-75.0); Hemoglobin 12.1 g/dL (14.0-18.0); Mean Corpuscular HGB CONC 31.9 g/dL (32.0-36.0); Mean Corpuscular Hemoglobin 33.2 pg (27.0-31.0); Mean Platelet Volume 6.2 fL (7.4-10.4); Platelet Count 358 thou/uL (130-400); RBC Distribution Width 13.4 % (11.5-14.5); Red Blood Cell (RBC) Count 3.66 mill/uL (4.70-6.10); White Blood Cell (WBC) Count 7.4 thou/uL (4.8-10.8)
[2021-12-22 19:56] LABS: PTT 26.4 sec (22.9-36.1); Prothrombin Time 13.6 sec (12.0-14.7)
[2021-12-22 20:08] LABS: ALT (SGPT) 24 U/L (8-55); AST (SGOT) 63 U/L (5-34); Albumin 3.5 g/dL (3.5-5.0); Alcohol 183 mg/dL (Less than 10); Alkaline Phosphatase 70 U/L (40-110); Anion Gap 12 mmol/L (10-20); BUN (Urea Nitrogen) 5 mg/dL (8.4-25.7); Bilirubin, Total 0.3 mg/dL (0.2-1.2); Calc. Creatinine Clearance 0 mL/min (70-130); Calcium 9.9 mg/dL (7.8-10.44); Carbon Dioxide 22 mmol/L (22-29); Chloride 104 mmol/L (98-107); Glucose 103 mg/dL (70-105); Lipase 13 U/L (8-78); Potassium 3.8 mmol/L (3.5-5.1); Protein, Total 6.5 g/dL (6.0-8.3); Sodium 134 mmol/L (136-145)
[2021-12-22] MEDS ORDERED: hydrALAZINE 20 MG/ML VIAL SLOW IVP PRN (20:45)
[2021-12-22] MEDS ORDERED: Cyclobenzaprine 10 MG TAB PO PRN (20:45)
[2021-12-22] MEDS ORDERED: traMADol HCl 50 MG TAB PO PRN (20:45)
[2021-12-22] MEDS ORDERED: Ondansetron PF 4 MG/2 ML Vial IVP PRN (20:50)
[2021-12-22] MEDS ORDERED: Montelukast Sodium 10 mg Tablet PO SCH (21:00)
[2021-12-22] MEDS ORDERED: Ketorolac Tromethamine 30 MG/ML VIAL ONE (21:25)
[2021-12-22] MEDS ORDERED: Lidocaine 1% w/Epinephrine 1:100K 20 ML VIAL ONE (21:26)
[2021-12-22 22:38] LABS: Lactic Acid 1.6 mmol/L (0.5-2.2)
[2021-12-22] MEDS ORDERED: Bacitracin 1 PK ONE (23:12)
[2021-12-23] MEDS: Ibuprofen 200 MG TAB PO SCH ×3 (00:34→14:30)
[2021-12-23] MEDS: Dexamethasone 4 mg/ml Vial SLOW IVP SCH ×3 (00:34→14:32)
[2021-12-23] MEDS: Acetaminophen 500 MG TAB PO SCH ×4 (00:35→19:02)
[2021-12-23] MEDS: traMADol HCl 50 MG TAB PO SCH ×4 (00:35→19:02)
[2021-12-23] MEDS: Sodium Chloride 0.9% 1,000 ML IV SCH ×3 (00:35→14:32)
[2021-12-23] MEDS: Oxazepam 10 MG CAP PO SCH ×3 (00:35→14:31)
[2021-12-23 00:49] VITALS: BMI 23.7
[2021-12-23 01:00] LABS: SARS-CoV-2 NAA Rapid Test Not Detected (NotDetected)
[2021-12-23 08:09] LABS: #Basophils 0.1 thou/uL (0.0-0.2); #Lymphocytes 0.3 thou/uL (1.20-3.40); #Monocytes 0.3 thou/uL (0.11-0.59); #Neutrophils 6.9 thou/uL (1.40-6.50); %Basophils 1.7 % (0.0-1.0); %Eosinophils 0.2 % (0.0-10.0); %Lymphocytes 3.5 % (21.0-51.0); %Monocytes 3.9 % (0.0-10.0); %Neutrophils 90.7 % (42.0-75.0); Hemoglobin 12.2 g/dL (14.0-18.0); Hypochromia SLIGHT = 6-15 cells (100X) (0-5/hpf); MDiff Complete? YES; Macrocytosis SLIGHT = 6-15 cells (100X) (0-5/hpf); Mean Corpuscular HGB CONC 31.5 g/dL (32.0-36.0); Mean Corpuscular Hemoglobin 33.2 pg (27.0-31.0); Mean Platelet Volume 6.5 fL (7.4-10.4); Platelet Count 316 thou/uL (130-400); Platelet Morphology Comment Appears Adequate; RBC Distribution Width 13.3 % (11.5-14.5); Red Blood Cell (RBC) Count 3.68 mill/uL (4.70-6.10); White Blood Cell (WBC) Count 7.6 thou/uL (4.8-10.8)
[2021-12-23] MEDS: buPROPion 75 MG TAB PO SCH ×2 (08:37)
[2021-12-23] MEDS: Gabapentin 100 MG CAP PO SCH ×3 (08:37→14:31)
[2021-12-23] MEDS: Senokot S 8.6-50 MG TAB PO SCH ×2 (08:38)
[2021-12-23] MEDS: Famotidine 20 MG TAB PO SCH ×2 (08:40)
[2021-12-23] MEDS: Morphine 2 MG/ML VIAL SLOW IVP PRN ×2 (08:41→11:35)
[2021-12-23] MEDS ORDERED: Folic Acid 1 MG TAB PO SCH (09:00)
[2021-12-23] MEDS ORDERED: Amlodipine 10 MG TAB PO SCH (09:00)
[2021-12-23] MEDS ORDERED: Lisinopril 20 MG TAB PO SCH (09:00)
[2021-12-23] MEDS ORDERED: Thiamine 100 MG TAB PO SCH (09:00)
[2021-12-23] MEDS ORDERED: FLUoxetine HCl 20 MG CAP PO SCH (09:00)
[2021-12-23 09:24] LABS: Alcohol Less than 10 mg/dL (Less than 10); Salicylate Less than 8.0 mg/dL (15.0-30.0)
[2021-12-23] MEDS ORDERED: Diazepam 5 MG TAB PO PRN (09:24)
[2021-12-23] MEDS ORDERED: guaiFENesin ER 600 MG TAB PO PRN (09:24)
[2021-12-23 17:05] VITALS: BP 138/74; TEMP 97.9
[2021-12-24] MEDS ORDERED: NIFEdipine XL 30 MG TAB PO SCH (09:00)
== END 2021-12-23 18:50 | disposition home or self-care (01) | DRG 200 ==
LOC: ERS 19:09 → SURG B 20:50
PROVIDERS: ADMIT Surgery; ATTEND Surgery
PROC: 0HQ0XZZ Repair Scalp Skin, External Approach (ICD-10-PCS; principal; 2021-12-22)
PROC: 08QPXZZ Repair Left Upper Eyelid, External Approach (ICD-10-PCS; 2021-12-22)
DX: S27.2XXA Traumatic hemopneumothorax, initial encounter (principal); Z20.822 Contact with and (suspected) exposure to COVID-19; Z23 Encounter for immunization; S22.41XA Multiple fractures of ribs, right side, initial encounter for closed fracture; Y00.XXXA Assault by blunt object, initial encounter; S01.112A Laceration without foreign body of left eyelid and periocular area, initial encounter; S01.01XA Laceration without foreign body of scalp, initial encounter; I10 Essential (primary) hypertension; J44.9 Chronic obstructive pulmonary disease, unspecified; E78.5 Hyperlipidemia, unspecified; F31.9 Bipolar disorder, unspecified; F10.10 Alcohol abuse, uncomplicated; M50.31 Other cervical disc degeneration, high cervical region; F41.9 Anxiety disorder, unspecified; G89.29 Other chronic pain; M54.9 Dorsalgia, unspecified; G40.909 Epilepsy, unspecified, not intractable, without status epilepticus; Z85.810 Personal history of malignant neoplasm of tongue; Z85.21 Personal history of malignant neoplasm of larynx; I25.2 Old myocardial infarction; Z98.890 Other specified postprocedural states
CPT/HCPCS: 12002; 12013; 36415; 70450; 70486; 71045; 71260; 72125; 74177; 80053; 80307; 83605; 83690; 85025; 85610; 85730; 86850; 86900; 86901; 90471; 90715; 93005; 94640; 96365; 96375; 96376; G0390; J1100; J1885; J2270; J2405; J7050; J7620; U0002

== ENCOUNTER 2021-12-24 20:54 | Emergency (ER) | payer OTHER ==
[2021-12-24] MEDS ORDERED: Ketorolac Tromethamine 30 MG/ML VIAL ONE (21:55)
== END 2021-12-24 23:00 | disposition home or self-care (01) ==
LOC: ERS 20:54
DX: S27.0XXD Traumatic pneumothorax, subsequent encounter (principal); S32.009D Unspecified fracture of unspecified lumbar vertebra, subsequent encounter for fracture with routine healing; M25.511 Pain in right shoulder; I10 Essential (primary) hypertension; I25.2 Old myocardial infarction; J44.9 Chronic obstructive pulmonary disease, unspecified; G40.909 Epilepsy, unspecified, not intractable, without status epilepticus; Y00.XXXD Assault by blunt object, subsequent encounter
CPT/HCPCS: 71045; 96372; J1885

== ENCOUNTER 2021-12-25 07:29 | Emergency (ER) | payer OTHER ==
[2021-12-25] MEDS ORDERED: Ketorolac Tromethamine 30 MG/ML VIAL ONE (08:40)
[2021-12-25] MEDS ORDERED: Mag-Al 1200 mg/1200 mg/30 ML UDCUP ONE (13:03)
== END 2021-12-25 12:24 | disposition home or self-care (01) ==
LOC: ERS 07:29
DX: S22.41XA Multiple fractures of ribs, right side, initial encounter for closed fracture (principal); Y00.XXXA Assault by blunt object, initial encounter; I10 Essential (primary) hypertension; J44.9 Chronic obstructive pulmonary disease, unspecified; Z85.21 Personal history of malignant neoplasm of larynx; Z79.899 Other long term (current) drug therapy; S32.009D Unspecified fracture of unspecified lumbar vertebra, subsequent encounter for fracture with routine healing; M25.511 Pain in right shoulder; I25.2 Old myocardial infarction; G40.909 Epilepsy, unspecified, not intractable, without status epilepticus; Y00.XXXD Assault by blunt object, subsequent encounter
CPT/HCPCS: 71045; 96372; J1885

== ENCOUNTER 2021-12-26 22:58 | Emergency (ER) | payer OTHER | END 2021-12-26 23:43 | disposition home or self-care (01) | LOC: ERS 22:58 | DX: S22.31XD Fracture of one rib, right side, subsequent encounter for fracture with routine healing (principal); S00.83XD Contusion of other part of head, subsequent encounter; S27.0XXD Traumatic pneumothorax, subsequent encounter; I10 Essential (primary) hypertension; J44.9 Chronic obstructive pulmonary disease, unspecified; I25.2 Old myocardial infarction; G40.909 Epilepsy, unspecified, not intractable, without status epilepticus; Y09 Assault by unspecified means | CPT/HCPCS: 99283 ==

== ENCOUNTER 2021-12-27 08:18 | Emergency (ER) | payer OTHER ==
[2021-12-27] MEDS ORDERED: Ketorolac Tromethamine 30 MG/ML VIAL ONE (09:30)
== END 2021-12-27 11:15 | disposition home or self-care (01) ==
LOC: ERS 08:18
DX: S22.41XA Multiple fractures of ribs, right side, initial encounter for closed fracture (principal); Y09 Assault by unspecified means; S01.81XD Laceration without foreign body of other part of head, subsequent encounter; I10 Essential (primary) hypertension; I25.2 Old myocardial infarction; J44.9 Chronic obstructive pulmonary disease, unspecified; Z85.21 Personal history of malignant neoplasm of larynx; Z79.899 Other long term (current) drug therapy
CPT/HCPCS: 71045; 96372; J1885

== ENCOUNTER 2021-12-28 06:42 | Emergency (ER) | payer OTHER | END 2021-12-28 07:16 | disposition home or self-care (01) | LOC: ERS 06:42 | DX: S22.41XA Multiple fractures of ribs, right side, initial encounter for closed fracture (principal); I25.2 Old myocardial infarction; I10 Essential (primary) hypertension; J44.9 Chronic obstructive pulmonary disease, unspecified; Z85.21 Personal history of malignant neoplasm of larynx; Z79.899 Other long term (current) drug therapy; Y09 Assault by unspecified means | CPT/HCPCS: 99281 ==

== ENCOUNTER 2021-12-31 20:03 | Emergency (ER) | payer OTHER ==
[2021-12-31 20:37] LABS: #Basophils 0.1 thou/uL (0.0-0.2); #Eosinphils 1.1 thou/uL (0.0-0.7); #Lymphocytes 1.8 thou/uL (1.20-3.40); #Monocytes 1.1 thou/uL (0.11-0.59); #Neutrophils 4.6 thou/uL (1.40-6.50); %Basophils 0.7 % (0.0-1.0); %Eosinophils 12.2 % (0.0-10.0); %Lymphocytes 21.3 % (21.0-51.0); %Monocytes 12.9 % (0.0-10.0); %Neutrophils 52.9 % (42.0-75.0); Hemoglobin 10.6 g/dL (14.0-18.0); Mean Corpuscular HGB CONC 33.2 g/dL (32.0-36.0); Mean Corpuscular Hemoglobin 33.1 pg (27.0-31.0); Mean Corpuscular Volume 99.6 fL (78.0-98.0); Mean Platelet Volume 5.4 fL (7.4-10.4); Platelet Count 447 thou/uL (130-400); White Blood Cell (WBC) Count 8.6 thou/uL (4.8-10.8)
[2021-12-31] MEDS ORDERED: Ondansetron PF 4 MG/2 ML Vial ONE (20:46)
[2021-12-31 20:57] LABS: ALT (SGPT) 13 U/L (8-55); AST (SGOT) 18 U/L (5-34); Albumin 3.5 g/dL (3.5-5.0); Alkaline Phosphatase 65 U/L (40-110); Anion Gap 13 mmol/L (10-20); BUN (Urea Nitrogen) 19 mg/dL (8.4-25.7); Bilirubin, Total 0.2 mg/dL (0.2-1.2); Calc. Creatinine Clearance 0 mL/min (70-130); Calcium 10.2 mg/dL (7.8-10.44); Carbon Dioxide 21 mmol/L (22-29); Chloride 105 mmol/L (98-107); Globulin 2.9 g/dL (2.4-3.5); Glucose 101 mg/dL (70-105); Potassium 4.2 mmol/L (3.5-5.1); Protein, Total 6.4 g/dL (6.0-8.3); Sodium 135 mmol/L (136-145)
== END 2021-12-31 23:05 | disposition home or self-care (01) ==
LOC: ERS 20:03
DX: R07.2 Precordial pain (principal); I25.2 Old myocardial infarction
CPT/HCPCS: 36415; 71046; 80053; 83880; 84484; 85025; 93005; 96374; J2405

== ENCOUNTER 2022-01-07 21:11 | Emergency (ER) | payer OTHER ==
[2022-01-07] MEDS ORDERED: Magnesium 2 GM/50 ML BAG (IN WATER) ONE (21:42)
[2022-01-07] MEDS ORDERED: predniSONE 20 MG TAB ONE (21:43)
[2022-01-07 21:52] LABS: Hemoglobin 10.1 g/dL (14.0-18.0); Mean Corpuscular HGB CONC 32.7 g/dL (32.0-36.0); Mean Corpuscular Hemoglobin 33.3 pg (27.0-31.0); Mean Platelet Volume 5.7 fL (7.4-10.4); Platelet Count 509 thou/uL (130-400); RBC Distribution Width 13.2 % (11.5-14.5); Red Blood Cell (RBC) Count 3.03 mill/uL (4.70-6.10); White Blood Cell (WBC) Count 8.4 thou/uL (4.8-10.8)
[2022-01-07] MEDS ORDERED: Doxycycline 100 MG CAP PO SCH (22:00)
[2022-01-07 22:09] LABS: ALT (SGPT) 12 U/L (8-55); AST (SGOT) 23 U/L (5-34); Albumin 3.4 g/dL (3.5-5.0); Alkaline Phosphatase 106 U/L (40-110); Anion Gap 15 mmol/L (10-20); BUN (Urea Nitrogen) 17 mg/dL (8.4-25.7); Bilirubin, Total 0.3 mg/dL (0.2-1.2); Calc. Creatinine Clearance 0 mL/min (70-130); Calcium 9.3 mg/dL (7.8-10.44); Carbon Dioxide 18 mmol/L (22-29); Chloride 107 mmol/L (98-107); Globulin 3.6 g/dL (2.4-3.5); Glucose 81 mg/dL (70-105); Potassium 4.7 mmol/L (3.5-5.1); Sodium 135 mmol/L (136-145)
[2022-01-07 22:15] LABS: Band 6 % (5-11); Eosinophils 6 % (0-10); Hypochromia SLIGHT = 6-15 cells (100X) (0-5/hpf); Lymphocytes 19 % (21-51); MDiff Complete? YES; Macrocytosis SLIGHT = 6-15 cells (100X) (0-5/hpf); Monocytes 12 % (0-10); Neutrophil 57 % (42-75); Platelet Morphology Comment Appears Increased
== END 2022-01-08 | disposition home or self-care (01) ==
LOC: ERS 21:11
DX: J44.1 Chronic obstructive pulmonary disease with (acute) exacerbation (principal); S27.321D Contusion of lung, unilateral, subsequent encounter; S22.31XD Fracture of one rib, right side, subsequent encounter for fracture with routine healing; J90 Pleural effusion, not elsewhere classified; I10 Essential (primary) hypertension; I25.2 Old myocardial infarction; Z79.899 Other long term (current) drug therapy
CPT/HCPCS: 71045; 80053; 84484; 85025; 93005; 96365; J3475; J7512; J7620

== ENCOUNTER 2022-01-09 03:43 | Emergency (ER) | payer OTHER | END 2022-01-09 07:38 | disposition left against medical advice (07) | LOC: ERS 03:43 | DX: Z53.21 Procedure and treatment not carried out due to patient leaving prior to being seen by health care provider (principal) ==

== ENCOUNTER 2022-01-22 12:35 | Inpatient (IN) | payer OTHER ==
[2022-01-22 13:36] LABS: #Lymphocytes 0.6 thou/uL (1.20-3.40); #Monocytes 0.6 thou/uL (0.11-0.59); #Neutrophils 8.9 thou/uL (1.40-6.50); %Basophils 0.1 % (0.0-1.0); %Eosinophils 0.1 % (0.0-10.0); %Monocytes 5.9 % (0.0-10.0); %Neutrophils 87.9 % (42.0-75.0); Hemoglobin 11.7 g/dL (14.0-18.0); Mean Corpuscular HGB CONC 32.7 g/dL (32.0-36.0); Mean Corpuscular Hemoglobin 32.5 pg (27.0-31.0); Mean Corpuscular Volume 99.4 fL (78.0-98.0); Mean Platelet Volume 6.6 fL (7.4-10.4); Platelet Count 416 thou/uL (130-400); RBC Distribution Width 13.8 % (11.5-14.5); White Blood Cell (WBC) Count 10.1 thou/uL (4.8-10.8)
[2022-01-22 13:57] LABS: Acetaminophen Less than 10.0 mcg/mL (10.0-30.0); Alcohol Less than 10 mg/dL (Less than 10); Salicylate Less than 8.0 mg/dL (15.0-30.0)
[2022-01-22 13:58] LABS: ALT (SGPT) 24 U/L (8-55); AST (SGOT) 51 U/L (5-34); Albumin 4.1 g/dL (3.5-5.0); Alkaline Phosphatase 122 U/L (40-110); Anion Gap 21 mmol/L (10-20); BUN (Urea Nitrogen) 32 mg/dL (8.4-25.7); Bilirubin, Total 0.6 mg/dL (0.2-1.2); CK (CPK) 414 U/L (30-200); Calc. Creatinine Clearance 0 mL/min (70-130); Calcium 11.3 mg/dL (7.8-10.44); Carbon Dioxide 17 mmol/L (22-29); Chloride 107 mmol/L (98-107); Glucose 119 mg/dL (70-105); Potassium 4.7 mmol/L (3.5-5.1); Protein, Total 8.1 g/dL (6.0-8.3); Sodium 140 mmol/L (136-145)
[2022-01-22] MEDS ORDERED: hydrALAZINE 20 MG/ML VIAL SLOW IVP PRN (16:56)
[2022-01-22] MEDS ORDERED: Ondansetron ODT 4 MG TAB PO PRN (16:56)
[2022-01-22] MEDS ORDERED: Ondansetron PF 4 MG/2 ML Vial IVP PRN (16:56)
[2022-01-22 17:07] LABS: Bacteria/HPF None Seen HPF (None Seen); Bilirubin Negative (Negative); Blood, Urine 2+ (Negative); Clarity Turbid (Clear); Glucose, Urine (Dipstick) Normal (Negative); Ketone, Urine Trace mg/dL (Negative); Leukocyte Negative Leu/uL (Negative); Nitrite Negative (Negative); Protein, Urine (Dipstick) 70 mg/dL (Neg-Trace); Specific Gravity, Urine 1.023 (1.002-1.036); Squamous Epithelial 0-3 HPF (0-3); Urobilinogen Normal mg/dL (Less than 2); WBC/HPF None Seen HPF (0-3); pH, Urine 5.5 (5.0-9.0)
[2022-01-22 17:12] LABS: Amphetamine Detected (NotDetected); Barbiturates Screen Not Detected (NotDetected); Benzodiazepine Screen Not Detected (NotDetected); Cocaine Metabolite Screen Not Detected (NotDetected); Methadone Not Detected (NotDetected); Methamphetamine Detected (NotDetected); Opiate Screen Not Detected (NotDetected); Oxycodone Screen Not Detected (NotDetected); Phencyclidine (PCP) Not Detected (NotDetected); THC/Cannabinoid Screen Not Detected (NotDetected); Tricyclic Screen Not Detected (NotDetected)
[2022-01-22 17:21] VITALS: BMI 22.6
[2022-01-22] MEDS: Sodium Chloride 0.9% 1,000 ML IV SCH (17:58)
[2022-01-22 18:25] LABS: Phosphorus 3.6 mg/dL (2.3-4.7)
[2022-01-22 18:27] LABS: Magnesium 1.9 mg/dL (1.6-2.6)
[2022-01-22] MEDS: Famotidine 20 MG TAB PO SCH (19:54)
[2022-01-22] MEDS: Acetaminophen 500 MG TAB PO PRN (19:54)
[2022-01-22] MEDS: HYDROcodone/Acetaminophen 5/325 mg Tablet PO PRN (21:00)
[2022-01-23] MEDS: Sodium Chloride 0.9% 1,000 ML IV SCH ×2 (04:37→14:49)
[2022-01-23] MEDS: HYDROcodone/Acetaminophen 5/325 mg Tablet PO PRN ×2 (06:06→14:48)
[2022-01-23 07:45] LABS: #Monocytes 0.6 thou/uL (0.11-0.59); #Neutrophils 4.9 thou/uL (1.40-6.50); %Basophils 0.1 % (0.0-1.0); %Eosinophils 0.4 % (0.0-10.0); %Lymphocytes 14.6 % (21.0-51.0); %Monocytes 9.7 % (0.0-10.0); %Neutrophils 75.2 % (42.0-75.0); Hemoglobin 12.1 g/dL (14.0-18.0); Mean Corpuscular HGB CONC 31.7 g/dL (32.0-36.0); Mean Platelet Volume 6.5 fL (7.4-10.4); Platelet Count 374 thou/uL (130-400); RBC Distribution Width 13.6 % (11.5-14.5); Red Blood Cell (RBC) Count 3.76 mill/uL (4.70-6.10); White Blood Cell (WBC) Count 6.5 thou/uL (4.8-10.8)
[2022-01-23 08:05] LABS: ALT (SGPT) 29 U/L (8-55); AST (SGOT) 47 U/L (5-34); Albumin 3.4 g/dL (3.5-5.0); Alkaline Phosphatase 102 U/L (40-110); Anion Gap 14 mmol/L (10-20); BUN (Urea Nitrogen) 32 mg/dL (8.4-25.7); Bilirubin, Total 0.6 mg/dL (0.2-1.2); Calc. Creatinine Clearance 38 mL/min (70-130); Calcium 9.8 mg/dL (7.8-10.44); Carbon Dioxide 18 mmol/L (22-29); Chloride 106 mmol/L (98-107); Globulin 3.4 g/dL (2.4-3.5); Glucose 107 mg/dL (70-105); Potassium 3.7 mmol/L (3.5-5.1); Protein, Total 6.8 g/dL (6.0-8.3); Sodium 134 mmol/L (136-145)
[2022-01-23] MEDS: Acetaminophen 500 MG TAB PO PRN (09:53)
[2022-01-23] MEDS: Mometasone 200 MCG/Formoterol 5 MCG 120 PUFF INHALER INH SCH (19:13)
[2022-01-23] MEDS: buPROPion 75 MG TAB PO SCH (20:59)
[2022-01-23] MEDS: cloNIDine 0.1 MG TAB PO SCH (20:59)
[2022-01-23] MEDS: Montelukast Sodium 10 mg Tablet PO SCH (21:00)
[2022-01-23] MEDS: Famotidine 20 MG TAB PO SCH (21:00)
[2022-01-24] MEDS: Diazepam 5 MG TAB PO PRN ×2 (00:07→20:39)
[2022-01-24] MEDS: Sodium Chloride 0.9% 1,000 ML IV SCH ×3 (00:07→20:37)
[2022-01-24] MEDS: HYDROcodone/Acetaminophen 5/325 mg Tablet PO PRN ×2 (04:04→19:12)
[2022-01-24] MEDS: Mometasone 200 MCG/Formoterol 5 MCG 120 PUFF INHALER INH SCH ×2 (06:28→18:51)
[2022-01-24] MEDS: Amlodipine 5 MG TAB PO SCH (07:27)
[2022-01-24] MEDS: FLUoxetine HCl 20 MG CAP PO SCH (07:27)
[2022-01-24] MEDS: buPROPion 75 MG TAB PO SCH ×2 (07:28→20:37)
[2022-01-24] MEDS: cloNIDine 0.1 MG TAB PO SCH ×2 (07:28→20:38)
[2022-01-24] MEDS ORDERED: Lorazepam 2 MG/ML VIAL ONE (07:59)
[2022-01-24] MEDS ORDERED: Ziprasidone 20 MG VIAL ONE (08:04)
[2022-01-24] MEDS ORDERED: Ziprasidone 20 MG VIAL IM SCH (08:15)
[2022-01-24 14:01] LABS: Anion Gap 10 mmol/L (10-20); BUN (Urea Nitrogen) 17 mg/dL (8.4-25.7); Calc. Creatinine Clearance 69 mL/min (70-130); Calcium 9.4 mg/dL (7.8-10.44); Carbon Dioxide 23 mmol/L (22-29); Chloride 112 mmol/L (98-107); Estimated GFR 75; Glucose 105 mg/dL (70-105); Potassium 4.4 mmol/L (3.5-5.1); Sodium 141 mmol/L (136-145)
[2022-01-24] MEDS: Ziprasidone 20 MG CAP PO SCH ×2 (18:05→18:15)
[2022-01-24] MEDS ORDERED: Ziprasidone 20 MG VIAL IM PRN (19:54)
[2022-01-24] MEDS: Famotidine 20 MG TAB PO SCH (20:38)
[2022-01-24] MEDS: Montelukast Sodium 10 mg Tablet PO SCH (20:38)
[2022-01-24] MEDS: Acetaminophen 500 MG TAB PO PRN (23:31)
[2022-01-25] MEDS: Sodium Chloride 0.9% 1,000 ML IV SCH (06:02)
[2022-01-25] MEDS: Mometasone 200 MCG/Formoterol 5 MCG 120 PUFF INHALER INH SCH (07:18)
[2022-01-25] MEDS ORDERED: Famotidine 20 MG TAB PO SCH (09:00)
[2022-01-25] MEDS: Amlodipine 5 MG TAB PO SCH (09:17)
[2022-01-25] MEDS: FLUoxetine HCl 20 MG CAP PO SCH (09:17)
[2022-01-25] MEDS: buPROPion 75 MG TAB PO SCH (09:17)
[2022-01-25] MEDS: cloNIDine 0.1 MG TAB PO SCH (09:17)
[2022-01-25] MEDS: HYDROcodone/Acetaminophen 5/325 mg Tablet PO PRN (10:56)
[2022-01-25 15:23] VITALS: BP 170/89; TEMP 98.6
== END 2022-01-25 15:50 | disposition home or self-care (01) | DRG 922 ==
LOC: ERS 12:35 → T4-A 16:56
PROVIDERS: ADMIT Internal Medicine; ATTEND Internal Medicine
DX: T67.01XA Heatstroke and sunstroke, initial encounter (principal); G93.41 Metabolic encephalopathy; N17.9 Acute kidney failure, unspecified; F31.64 Bipolar disorder, current episode mixed, severe, with psychotic features; F15.10 Other stimulant abuse, uncomplicated; I10 Essential (primary) hypertension; J44.9 Chronic obstructive pulmonary disease, unspecified; F31.9 Bipolar disorder, unspecified; E86.0 Dehydration; E83.52 Hypercalcemia; X30.XXXA Exposure to excessive natural heat, initial encounter; Z71.51 Drug abuse counseling and surveillance of drug abuser; Z59.00 Homelessness unspecified; Z98.890 Other specified postprocedural states
CPT/HCPCS: 36415; 80048; 80053; 80306; 80307; 81003; 81015; 82550; 82607; 82746; 83735; 84100; 84443; 85025; 93005; 94640; 94664; 96360; J0360; J3486; J7050; J7620; U0003; U0005

== ENCOUNTER 2022-01-25 18:38 | Emergency (ER) | payer OTHER ==
[2022-01-25 20:21] LABS: #Eosinphils 0.1 thou/uL (0.0-0.7); #Lymphocytes 0.8 thou/uL (1.20-3.40); #Monocytes 0.8 thou/uL (0.11-0.59); %Basophils 0.6 % (0.0-1.0); %Eosinophils 0.7 % (0.0-10.0); %Lymphocytes 9.9 % (21.0-51.0); %Monocytes 10.2 % (0.0-10.0); %Neutrophils 78.4 % (42.0-75.0); Hemoglobin 10.8 g/dL (14.0-18.0); Mean Corpuscular HGB CONC 31.6 g/dL (32.0-36.0); Mean Corpuscular Hemoglobin 32.4 pg (27.0-31.0); Mean Platelet Volume 6.1 fL (7.4-10.4); Platelet Count 340 thou/uL (130-400); RBC Distribution Width 13.6 % (11.5-14.5); Red Blood Cell (RBC) Count 3.33 mill/uL (4.70-6.10); White Blood Cell (WBC) Count 7.6 thou/uL (4.8-10.8)
[2022-01-25 20:42] LABS: Acetaminophen Less than 10.0 mcg/mL (10.0-30.0); Alcohol Less than 10 mg/dL (Less than 10); CK (CPK) 83 U/L (30-200); Salicylate Less than 8.0 mg/dL (15.0-30.0)
[2022-01-25 20:44] LABS: ALT (SGPT) 19 U/L (8-55); AST (SGOT) 22 U/L (5-34); Albumin 3.5 g/dL (3.5-5.0); Alkaline Phosphatase 81 U/L (40-110); Anion Gap 14 mmol/L (10-20); BUN (Urea Nitrogen) 13 mg/dL (8.4-25.7); Bilirubin, Total 0.5 mg/dL (0.2-1.2); Calc. Creatinine Clearance 0 mL/min (70-130); Calcium 9.9 mg/dL (7.8-10.44); Carbon Dioxide 24 mmol/L (22-29); Chloride 105 mmol/L (98-107); Estimated GFR 76; Globulin 3.2 g/dL (2.4-3.5); Glucose 89 mg/dL (70-105); Protein, Total 6.7 g/dL (6.0-8.3); Sodium 139 mmol/L (136-145)
[2022-01-25] MEDS ORDERED: Acetaminophen 500 MG TAB ONE (20:57)
[2022-01-25] MEDS ORDERED: diphenhydrAMINE 50 MG/ML VIAL ONE (20:58)
[2022-01-25 22:22] LABS: Bilirubin Negative (Negative); Blood, Urine Negative (Negative); Clarity Clear (Clear); Glucose, Urine (Dipstick) Normal (Negative); Ketone, Urine Negative (Negative); Leukocyte Negative Leu/uL (Negative); Nitrite Negative (Negative); Protein, Urine (Dipstick) Negative (Neg-Trace); Specific Gravity, Urine 1.009 (1.002-1.036); Urobilinogen Normal mg/dL (Less than 2)
[2022-01-25 22:27] LABS: Amphetamine Not Detected (NotDetected); Barbiturates Screen Not Detected (NotDetected); Benzodiazepine Screen Detected (NotDetected); Cocaine Metabolite Screen Not Detected (NotDetected); Methadone Not Detected (NotDetected); Methamphetamine Not Detected (NotDetected); Opiate Screen Detected (NotDetected); Oxycodone Screen Not Detected (NotDetected); Phencyclidine (PCP) Not Detected (NotDetected); THC/Cannabinoid Screen Not Detected (NotDetected); Tricyclic Screen Not Detected (NotDetected)
== END 2022-01-26 02:37 | disposition home or self-care (01) ==
LOC: ERS 18:38
DX: E86.0 Dehydration (principal); R03.0 Elevated blood-pressure reading, without diagnosis of hypertension; D64.9 Anemia, unspecified; F15.10 Other stimulant abuse, uncomplicated
CPT/HCPCS: 36415; 71045; 80053; 80306; 80307; 81003; 82550; 84484; 85025; 93005; J1200

== ENCOUNTER 2022-01-26 07:15 | Emergency (ER) | payer OTHER ==
[2022-01-26] MEDS ORDERED: Ondansetron PF 4 MG/2 ML Vial ONE (07:37)
== END 2022-01-26 09:45 | disposition home or self-care (01) ==
LOC: ERS 07:15
DX: E86.0 Dehydration (principal); Z79.899 Other long term (current) drug therapy
CPT/HCPCS: 93005; J2405

== ENCOUNTER 2022-01-26 10:32 | Emergency (ER) | payer OTHER | END 2022-01-26 16:14 | disposition home or self-care (01) | LOC: ERS 10:32 | DX: Z00.00 Encounter for general adult medical examination without abnormal findings (principal); I10 Essential (primary) hypertension; I25.2 Old myocardial infarction; J44.9 Chronic obstructive pulmonary disease, unspecified; Z79.899 Other long term (current) drug therapy | CPT/HCPCS: 36415; 71045; 80053; 80306; 80307; 81003; 82550; 84484; 85025; 93005; J1200; J2405 ==

== ENCOUNTER 2022-01-26 16:55 | Emergency (ER) | payer OTHER | END 2022-01-26 19:00 | disposition home or self-care (01) | LOC: ERS 16:55 | DX: R11.0 Nausea (principal) | CPT/HCPCS: 99281 ==